=== PATIENT | male | born 1960 | race Caucasian/White ===

== ENCOUNTER 2016-06-09 21:42 | Emergency (ER) | payer MEDICARE ==
[~2016-06-09] VITALS: Ht 165.1 cm; Wt 186.9 kg
[~2016-06-09 21:42] MED LIST: AUGMENTIN 875875 MG PO; CYMBALTA60 MG PO; LYRICA300 MG PO; Lopressor25 MG PO; MULTIVITAMIN1 TA1 PO; NORVASC5 MG PO; OMEPRAZOLE20 MG PO; OXYCONTIN80 MG PO; TEMAZEPAM30 MG PO; TESSALON PERLE200 MG PO; ULTRAM50 MG PO; VIBRAMYCIN100 MG PO; VITAMIN D5000 I3 PO
[2016-06-09] MEDS ORDERED: DOLOPHINE HCL10 MG PO (21:58)
== END 2016-06-10 01:30 | disposition short-term general hospital (02) ==
LOC: ED 21:42
DX: S09.90XA Unspecified injury of head, initial encounter (principal); S89.92XA Unspecified injury of left lower leg, initial encounter; Z79.899 Other long term (current) drug therapy; W18.2XXA Fall in (into) shower or empty bathtub, initial encounter; Y93.89 Activity, other specified; Y92.9 Unspecified place or not applicable; Y99.9 Unspecified external cause status

== ENCOUNTER → 2016-06-26 | Outpatient (CLI) | payer MEDICARE ==
[~2016-06-26] MED LIST changes: +DOLOPHINE HCL10 MG PO
--- NOTE | ~2016-06-26 | WRIGHTHP ---
[place], [place] PATIENT HISTORY AND PHYSICAL EXAM NAME: ANDREAS ESCOTO [facility] #: [id number] UNIT #: [id number] ROOM: DOCTOR: LAURIE AnnaJONAS BIRTHDATE: [birth year] DOS: 06/26/2016 NEW WOUND CARE EVALUATION CHIEF COMPLAINT: Open wound of the left lower extremity. HISTORY OF PRESENT ILLNESS: This is a 55-year-old male who fell approximately on 06/09/2016 at home in the shower and had a very large laceration of the left anterior leg. He was seen here in the Emergency Room Department for this, but also had hit his head, and due to the fact that he was felt to need a CT of the head; however, the CT scanner could not accommodate him due to his weight, the patient was transferred to [place]. At some point, he did have sutures placed in the wound on his left leg; however the sutures came loose and apparently there was a wound infection with what sounds like cellulitis and the patient had been admitted to the hospital at [facility] for 5 days for IV antibiotics. He said he was on multiple antibiotics and discharged home on, he believes, doxycycline twice a day. He said he comes in for that. He does have a history of diabetic foot ulcers, poor healing in the past, has been to the Wound Clinic approximately a year ago. It looks like he had an ultrasound done that showed multilevel disease, some mild bilateral inflow stenosis, bilateral superficial femoral artery stenosis on the right and stenosis and occlusive area on the left, diffuse atherosclerosis of the popliteal tibial arteries, but never did undergo any vascular consultation after this study, but he comes in today because the wound still has not healed and he is seeking wound care. He was referred by his PCP. PAST MEDICAL HISTORY: Significant for morbid obesity. He is status post gastric bypass, neuropathy, right knee reconstruction replacement, bulging disks in his back, diabetes, but no longer has diabetes after his gastric bypass, hypertension, heartburn, swollen ankles, sinus problems, back surgery, depression, anxiety, liver problems, arthritis, history of cellulitis, gastric bypass, cholecystectomy, appendectomy, tonsillectomy, cardiac catheterization in 2001 bariatric surgery 2 years ago, history of hepatitis C treated with interferon, cirrhosis of the liver. SOCIAL HISTORY: He is a former smoker. He smoked for many years, but quit 10 years ago. FAMILY HISTORY: Unremarkable. ALLERGIES: MORPHINE. MEDICATIONS: That have been printed from his PCP's office is the following, Anusol rectal suppositories for 7 days, Benadryl 25 mg 2 tablets daily, capsaicin topical cream b.i.d., Cipro 500 p.o. b.i.d., K-Dur 20 daily, Lasix 20 daily, Lopressor 50 mg half a tablet b.i.d., Lyrica 300 b.i.d., methadone 10 mg 2 tablets t.i.d., Norvasc 10 mg half a tablet b.i.d., oxycodone 10 mg 1 tablet t.i.d., Restoril 30 mg at bedtime, Wellbutrin 100 q. day, Xanax 0.5 daily. He was on prednisone at one point, but I do not believe he is on prednisone now. [place], [place] PATIENT HISTORY AND PHYSICAL EXAM [facility]: [facility] [id number] UNIT #: [id number] ROOM: DOCTOR: JONAS SULLIVAN M.D. BIRTHDATE: [birth year] REVIEW OF SYSTEMS: He denies any chest pain, shortness of breath, nausea, vomiting, abdominal pains or diarrhea. He says he has some drainage. He is complaining that the dressing is sticking to the wound. He says he is not diabetic anymore. He offers no other specific complaints. He is able to ambulate, but has been trying to take it a little bit easier since he has had this problem with the wound. He said the redness that was present when he was hospitalized has much improved with antibiotic therapy. PHYSICAL EXAMINATION: GENERAL: This is a male who appears chronically ill and debilitated, morbidly obese, in no acute distress. VITAL SIGNS: Stable. Temperature is 97.9, pulse is 64, respirations 20, blood pressure is 120/52. NECK: There is no JVD. LUNGS: Clear. CARDIOVASCULAR: S1, S2, regular rate and rhythm. ABDOMEN: Soft. EXTREMITIES: Has chronic edema, venous stasis changes. His toes are warm. He has no calf tenderness. His pulses are very difficult to feel secondary to a chronic woody edema. He does have an open wound located in the left anterior tibia, it is measuring approximately 9 x 2.3 x 0.5 cm in depth. There is exposed subcutaneous tissue. There is moderate amount of fibrin slough. Periwound is not acutely tender or cellulitic. There is no purulence. It is somewhat curvilinear in fashion. His lower extremity ABIs were unobtainable. The patient was unable to lay flat. His capillary refill was less than 3 seconds. LABORATORY STUDIES: Last labs that were documented in the computer show white count of 3.7, this was back in October 2015, hemoglobin is 9.9, platelets are 99,000, BUN is 9, creatinine was 0.63 that is back in October once again. His hemoglobin A1c was 4.8, but that was back in 2014 and his glucose was 78 A debridement was done today. This was a selective debridement only. The tissue removed was a spot fibrin slough, nonviable tissue only. Cetacaine spray was used for topical anesthesia. There was minimal bleeding. The patient tolerated debridement well. Post-debridement measurements are unchanged. ASSESSMENT AND PLAN: Status post wound dehiscence secondary to edema, wound infection, which seems to have been treated. I would like to get the records from [facility] if possible. He does have some peripheral vascular disease according to the study that was done a year ago. We will send the patient for vascular consultation. We will use MYFX and mywaves Ag for now for wound care, have him change it every day or every other day as he has home health. We will have him follow up next week. [place], [place] PATIENT HISTORY AND PHYSICAL EXAM NAME: ANDREAS ESCOTO [facility] #: [id number] UNIT #: [id number] ROOM: DOCTOR: JONAS SULLIVAN M.D. BIRTHDATE: [birth year] JONAS SULLIVAN MD CM:HISPHYS:PATIENT HISTORY AND PHYSICAL EXAMINATION [id number] JONAS SULLIVAN M.D. 06/26/162009 interface
== END ==
LOC: WOUNDCARE 02:12
DX: T81.31XA Disruption of external operation (surgical) wound, not elsewhere classified, initial encounter (principal); E11.622 Type 2 diabetes mellitus with other skin ulcer; L97.922 Non-pressure chronic ulcer of unspecified part of left lower leg with fat layer exposed; E66.01 Morbid (severe) obesity due to excess calories; I10 Essential (primary) hypertension; F32.9 Major depressive disorder, single episode, unspecified; F41.9 Anxiety disorder, unspecified; E11.40 Type 2 diabetes mellitus with diabetic neuropathy, unspecified; B19.20 Unspecified viral hepatitis C without hepatic coma; M19.90 Unspecified osteoarthritis, unspecified site; E11.51 Type 2 diabetes mellitus with diabetic peripheral angiopathy without gangrene; R60.9 Edema, unspecified; Z87.891 Personal history of nicotine dependence; Y83.8 Other surgical procedures as the cause of abnormal reaction of the patient, or of later complication, without mention of misadventure at the time of the procedure

== ENCOUNTER → 2016-07-06 | Outpatient (CLI) | payer MEDICARE ==
--- NOTE | ~2016-07-06 | PR ---
[place], [place] PROGRESS NOTE NAME: ANDREAS ESCOTO [facility] #: [id number] UNIT #: [id number] ROOM: DOCTOR: LAURIE Anna,JONAS BIRTHDATE: [birth year] DOS: 07/06/2016 CHIEF COMPLAINT: Open wound of the left lower extremity. HISTORY OF PRESENT ILLNESS: The wound is located on the left anterior leg. It is traumatic in nature, complicated by morbid obesity and edema. He has had a bout of cellulitis and local wound infection that was treated with IV antibiotics at [facility]. The patient comes in today without any specific complaints. We saw him last week and had recommended Santyl and Aquacel AG. The patient reports not much drainage, has been changing it every day, and he has no complaints of pain. OBJECTIVE: VITAL SIGNS: As follows: His vitals are stable. Temperature is 98.2, pulse is 70, respirations 20, blood pressure is 144/80. WOUND EXAM: The wound is measuring approximately 9 x 1.9 x 0.4. There is exposed subcutaneous tissue. Moderate amount of fibrin slough is present. There is no erythema, cellulitis or purulence noted. There is no tunneling. The wound was debrided today of fibrin slough and subcutaneous tissue. This was accomplished with a curette. Post-debridement measurements are unchanged. There was a minimal amount of bleeding. The patient tolerated the debridement well. Cetacaine spray was used for topical anesthesia. ASSESSMENT AND PLAN: Status post postoperative wound dehiscence secondary to edema and infection. The patient does have some peripheral vascular disease. We have recommended a followup consultation with Vascular and apparently, he had an appointment, but that had to be changed for 3 weeks from now, so he does have a followup being scheduled. Overall, the wound is stable, I will continue with the current dressing and follow up in one week. JONAS SULLIVAN MD CM:PNTRANS [phone] JONAS SULLIVAN M.D. 07/06/16 2221 interface
== END ==
LOC: WOUNDCARE 01:29
DX: T81.31XD Disruption of external operation (surgical) wound, not elsewhere classified, subsequent encounter (principal); L97.822 Non-pressure chronic ulcer of other part of left lower leg with fat layer exposed; I73.9 Peripheral vascular disease, unspecified; E66.01 Morbid (severe) obesity due to excess calories; Y83.8 Other surgical procedures as the cause of abnormal reaction of the patient, or of later complication, without mention of misadventure at the time of the procedure

== ENCOUNTER → 2016-07-13 | Outpatient (CLI) | payer MEDICARE ==
--- NOTE | ~2016-07-13 | PR ---
[place], [place] PROGRESS NOTE NAME: ANDREAS ESCOTO [facility] #: [id number] UNIT #: [id number] ROOM: DOCTOR: JONAS SULLIVAN M.D. BIRTHDATE: [birth year] DOS: 07/13/2016 CHIEF COMPLAINT: Open wound of the left lower extremity. HISTORY OF PRESENT ILLNESS: The wound is located in the left anterior leg. It is traumatic in nature, complicated by morbid obesity and edema. The wound has been opened since the end of May for approximately 4 weeks now. The wound became complicated with a bout of infection and cellulitis and he was treated with IV antibiotics. He has been in the Wound Clinic now for 2-3 weeks with a gradually improving wound. He is on Santyl and Aquacel Ag and this seems to be really helping. He has no specific complaints, occasional twinge of pain, but nothing acutely changed as far as pain or fevers or chills go. OBJECTIVE: VITAL SIGNS: Stable. Temperature is 98.4, pulse is 68, respirations are 20, blood pressure is 110/64. WOUND EXAMINATION: The wound is measuring 8.1 x 1 x 0.3. There is minimal to moderate amount of fibrin slough present in the base of the wound and the dried adherent slough around the periphery of the wound. A debridement was done. The tissue removed was fibrin, slough and subcutaneous tissue. This was accomplished with a curette. Cetacaine spray was used for topical anesthesia. Minimal amount of bleeding was controlled with pressure. The patient tolerated the debridement well. ASSESSMENT AND PLAN: Traumatic wound, status post dehiscence. The wound is improving. He does have peripheral vascular disease and is going to follow up with Dr. Mejia in the next couple of weeks. We will continue with the current Santyl, Aquacel Ag and follow up in 1 week. JONAS SULLIVAN MD CM:FELIPE [phone] JONAS SULILVAN M.D. 07/14/16 0357 interface
== END ==
LOC: WOUNDCARE 02:45
DX: T81.31XD Disruption of external operation (surgical) wound, not elsewhere classified, subsequent encounter (principal); L97.822 Non-pressure chronic ulcer of other part of left lower leg with fat layer exposed; I73.9 Peripheral vascular disease, unspecified; E66.01 Morbid (severe) obesity due to excess calories; Y83.8 Other surgical procedures as the cause of abnormal reaction of the patient, or of later complication, without mention of misadventure at the time of the procedure

== ENCOUNTER → 2016-07-20 | Outpatient (CLI) | payer MEDICARE ==
--- NOTE | ~2016-07-20 | PR ---
[place], [place] PROGRESS NOTE NAME: ANDREAS ESCOTO [facility] #: [id number] UNIT #: [id number] ROOM: DOCTOR: LAURIE AnnaJONAS BIRTHDATE: [birth year] DOS: 07/20/2016 CHIEF COMPLAINT: Open wound of the left lower extremity. HISTORY OF PRESENT ILLNESS: The wound is located in the left anterior leg. It is traumatic in nature, complicated by morbid obesity and edema. It has been opened since the end of May for approximately 5 weeks now. He was initially complicated by a wound infection and cellulitis. He was treated at another facility previously with IV antibiotics. He comes in stating he thinks it is looking really good and he is wondering if he can go ahead and get it wet in a shower. He has no other specific complaints. We wanted to send him for vascular consultation. However, the Dopplers that were done were over a year ago and that the vascular surgeon would like him to repeat his arterial Dopplers before he comes to see him, so we will go ahead and get that ordered. PHYSICAL EXAMINATION: VITAL SIGNS: Stable. Temperature is 97.8, pulse of 70, respirations 20, blood pressure is 110/68. WOUND EXAMINATION: The wound is measuring 8.9 x 1 x 0.1 in depth. It looks good. It is healed quite a bit. There is essentially only 2 areas now, one at the proximal and distal end that are open. There is minimal fibrin, slough present. Overall, looks really good. The middle part of the wound has definitely epithelialized. A debridement was done of the distal and proximal portion of the wound. Tissue removed was fibrin, slough and subcutaneous tissue. There was minimal bleeding. The post-debridement measurements are unchanged. There is, however, still some depth to the distal part of the wound. I would say at least 0.2 cm in depth in one area. A curette was utilized, Cetacaine spray was used for topical anesthesia. The patient tolerated the debridement well. ASSESSMENT AND PLAN: Traumatic wound, status post dehiscence. The wound has been improving. He has probable peripheral vascular disease. We are going to send him for repeat arterial Dopplers. We are going to go ahead and change him to a collagen dressing for now and have him follow up in 1 week. [place], [place] PROGRESS NOTE NAME: ANDREAS ESCOTO UNIT #: [id number] ROOM: DOCTOR: JONAS SULLIVAN M.D. BIRTHDATE: [birth year] JONAS SULLIVAN MD CM:FELIPE [phone] JONAS SULLIVAN M.D. 07/21/16 0329 interface
== END ==
LOC: WOUNDCARE 02:44
DX: T81.31XD Disruption of external operation (surgical) wound, not elsewhere classified, subsequent encounter (principal); L97.822 Non-pressure chronic ulcer of other part of left lower leg with fat layer exposed; I73.9 Peripheral vascular disease, unspecified; E66.01 Morbid (severe) obesity due to excess calories; Y83.8 Other surgical procedures as the cause of abnormal reaction of the patient, or of later complication, without mention of misadventure at the time of the procedure

== ENCOUNTER → 2016-07-27 | Outpatient (CLI) | payer MEDICARE ==
--- NOTE | ~2016-07-27 | PR ---
[place], [place] PROGRESS NOTE NAME: ANDREAS ESCOTO [facility] #: [id number] UNIT #: [id number] ROOM: DOCTOR: JONAS SULLIVAN M.D. BIRTHDATE: [birth year] DOS: 07/27/2016 CHIEF COMPLAINT: Open wound of the left lower extremity. HISTORY OF PRESENT ILLNESS: The ulcer is located in the left anterior leg. It was originally traumatic in nature, complicated by obesity and edema with wound infection and cellulitis. He has been coming to the Wound Clinic now for 4 weeks of treatment. He says the wound has stopped draining and it has started to scab over. He has not experienced any discomfort, fevers or chills. He is going to have a repeat vascular arterial studies done today. PHYSICAL EXAMINATION: VITAL SIGNS: He is afebrile, pulse is 68, respirations 20, blood pressure is 128/72. EXTREMITIES: The wound initially is measuring 0.1 x 0.1 x 0.1 because it is covered with some dried scab material; however, some of it is still slightly moist at the distal end. So, a selective debridement was done of the area just to remove the dried scab/eschar and underneath was still open in certain parts. The wound is measuring 5.8 x 0.7 x 0.3 in length, width and depth. However, within those margins, there is quite a bit of epithelialization, so there is actually just a very small opening at the proximal portion and at the distal portion, but the rest of the wound is healed, so this was a selective debridement only. The tissue removed was just nonviable tissue with a curette. There was no bleeding. The patient tolerated the debridement well. ASSESSMENT AND PLAN: Traumatic wound, complicated by obesity and lymphedema, it is definitely improving. We will continue with a collagen dressing and follow up in one week. I expect it to be healed within the next week or two. We will have him get his arterial Dopplers done today and then once that is accomplished, he can follow up with Vascular. JONAS SULLIVAN MD CM:FELIPE [phone] JONAS SULLIVAN M.D. 07/28/16 0709 interface
== END | disposition home or self-care (01) ==
LOC: US 01:57
DX: S81.802A Unspecified open wound, left lower leg, initial encounter (principal); S89.92XA Unspecified injury of left lower leg, initial encounter; I70.203 Unspecified atherosclerosis of native arteries of extremities, bilateral legs; I89.0 Lymphedema, not elsewhere classified; M79.89 Other specified soft tissue disorders; R60.9 Edema, unspecified; T81.30XD Disruption of wound, unspecified, subsequent encounter; L97.922 Non-pressure chronic ulcer of unspecified part of left lower leg with fat layer exposed; I73.9 Peripheral vascular disease, unspecified; E66.9 Obesity, unspecified; I10 Essential (primary) hypertension; X58.XXXA Exposure to other specified factors, initial encounter; X58.XXXD Exposure to other specified factors, subsequent encounter; Y93.89 Activity, other specified; Y92.89 Other specified places as the place of occurrence of the external cause; Y99.8 Other external cause status

== ENCOUNTER → 2016-08-03 | Outpatient (CLI) | payer MEDICARE ==
--- NOTE | ~2016-08-03 | PR ---
[place], [place] PROGRESS NOTE NAME: ANDREAS ESCOTO [facility] #: [id number] UNIT #: [id number] ROOM: DOCTOR: JONAS SULLIVAN M.D. BIRTHDATE: [birth year] DOS: 08/03/2016 CHIEF COMPLAINT: Open wound of the left lower extremity. HISTORY OF PRESENT ILLNESS: The ulcer is located on the left anterior leg. It originally was traumatic in nature, complicated by obesity and lymphedema, subsequent infection and cellulitis. He has been coming in the Wound Clinic for 5 weeks now. The wound has been steadily improving. He is now on collagen. He is awaiting vascular consultation for peripheral vascular disease. He has no complaints with the wound and he really wants to take a shower. He is asking if that is possible. OBJECTIVE: VITAL SIGNS: His temperature is 98.3, pulse is 65, respirations 20, blood pressure is 122/68. WOUND EXAMINATION: The wound is measuring 1.1 x 0.1 x 0.1. There is a small amount of fibrin slough present in the distal part of the wound. A lot of the wound has healed quite nicely and selective debridement was done just to remove some of the nonviable tissue, fibrin slough was removed. There was no bleeding. The patient tolerated the debridement well. Instrument used was a curette. Post-debridement measurements are 1.1 x 0.1 x 0.2 in depth. ASSESSMENT AND PLAN: A slowly healing leg wound. I think this wound will be healed next week or two. We will continue with the collagen dressing. I did tell him to go ahead and put a waterproof bandage such as a waterproof Band-Aid if he wants to take a shower or we could use a foam. We will try to apply that today and see if that sticks to his skin otherwise he can use a waterproof Band-Aid and change the dressing when he is finished. We will continue with collagen as well. Follow up in one week. JONAS SULLIVAN MD CM:PNTRANS [phone] JONAS SULLIVAN M.D. 08/04/16 0019 interface
== END | disposition home or self-care (01) ==
LOC: WOUNDCARE 00:09
DX: T81.31XD Disruption of external operation (surgical) wound, not elsewhere classified, subsequent encounter (principal); L97.822 Non-pressure chronic ulcer of other part of left lower leg with fat layer exposed; I89.0 Lymphedema, not elsewhere classified; E66.9 Obesity, unspecified; I73.9 Peripheral vascular disease, unspecified; Y83.8 Other surgical procedures as the cause of abnormal reaction of the patient, or of later complication, without mention of misadventure at the time of the procedure

== ENCOUNTER → 2016-08-17 | Outpatient (CLI) | payer MEDICARE ==
--- NOTE | ~2016-08-17 | PR ---
[place], [place] PROGRESS NOTE NAME: ANDREAS ESCOTO [facility] #: [id number] UNIT #: [id number] ROOM: DOCTOR: JONAS SULLIVAN M.D. BIRTHDATE: [birth year] DOS: 08/17/2016 CHIEF COMPLAINT: Followup of wound of the left lower extremity. HISTORY OF PRESENT ILLNESS: The location of the wound is the left anterior reina, tibia. It is complicated by obesity and lymphedema. It was initially traumatic in nature with subsequent infection, fairly large deep wound, the wound has definitely been improving, and he thinks it looks healed. It is not draining. It is not painful. He has not even been able to get the dressings on it as it is scabbed over. PHYSICAL EXAMINATION: VITAL SIGNS: Temperature 98.1, pulse of 84, respirations 20, blood pressure is 144/60. WOUND EXAM: The wound currently is scabbed over. The last measurements we had were 1.1 x 0.1 x 0.2 in depth, but today's measurements are 0.1 x 0.1 x 0.1; however, it is covered with dried scab. This area was debrided of devitalized tissue with forceps and scissors and the wound looks healed underneath it completely epithelialized. ASSESSMENT AND PLAN: Healed wound. We will discharge the patient and have him follow up in the clinic if he needs to in the future for any new problems. He will be seeing Dr. Mejia for vascular consultation later this month. JONAS SULLIVAN MD CM:RENZOTRANS [phone] JONAS SULLIVAN M.D. 08/18/16 0322 interface
== END | disposition home or self-care (01) ==
LOC: WOUNDCARE 00:40
DX: L97.822 Non-pressure chronic ulcer of other part of left lower leg with fat layer exposed (principal); E66.9 Obesity, unspecified; R60.9 Edema, unspecified; I89.0 Lymphedema, not elsewhere classified

== ENCOUNTER → 2017-08-22 | Outpatient (CLI) | payer MEDICARE | END | disposition home or self-care (01) | LOC: WOUNDCARE 01:27 | DX: E11.621 Type 2 diabetes mellitus with foot ulcer (principal); L97.422 Non-pressure chronic ulcer of left heel and midfoot with fat layer exposed; K21.9 Gastro-esophageal reflux disease without esophagitis; I10 Essential (primary) hypertension; G89.29 Other chronic pain; Z87.891 Personal history of nicotine dependence ==

== ENCOUNTER → 2017-08-29 | Outpatient (CLI) | payer MEDICARE | END | disposition home or self-care (01) | LOC: WOUNDCARE 00:27 | DX: E11.621 Type 2 diabetes mellitus with foot ulcer (principal); L97.422 Non-pressure chronic ulcer of left heel and midfoot with fat layer exposed; L84 Corns and callosities; G89.29 Other chronic pain; I10 Essential (primary) hypertension; K21.9 Gastro-esophageal reflux disease without esophagitis; Z87.891 Personal history of nicotine dependence; Z96.651 Presence of right artificial knee joint; Z90.49 Acquired absence of other specified parts of digestive tract ==

== ENCOUNTER → 2017-09-05 | Outpatient (CLI) | payer MEDICARE | END | disposition home or self-care (01) | LOC: WOUNDCARE 03:41 | DX: E11.621 Type 2 diabetes mellitus with foot ulcer (principal); L97.422 Non-pressure chronic ulcer of left heel and midfoot with fat layer exposed; K21.9 Gastro-esophageal reflux disease without esophagitis; I10 Essential (primary) hypertension; G89.29 Other chronic pain; Z96.651 Presence of right artificial knee joint; Z93.3 Colostomy status; Z87.891 Personal history of nicotine dependence ==

== ENCOUNTER → 2017-09-12 | Outpatient (CLI) | payer MEDICARE | END | disposition home or self-care (01) | LOC: WOUNDCARE 03:13 | DX: E11.621 Type 2 diabetes mellitus with foot ulcer (principal); L97.422 Non-pressure chronic ulcer of left heel and midfoot with fat layer exposed; K21.9 Gastro-esophageal reflux disease without esophagitis; I10 Essential (primary) hypertension; G89.29 Other chronic pain; Z87.891 Personal history of nicotine dependence; Z96.651 Presence of right artificial knee joint ==

== ENCOUNTER → 2017-09-26 | Outpatient (CLI) | payer MEDICARE | END | disposition home or self-care (01) | LOC: WOUNDCARE 04:23 | DX: E11.621 Type 2 diabetes mellitus with foot ulcer (principal); L97.422 Non-pressure chronic ulcer of left heel and midfoot with fat layer exposed; L84 Corns and callosities; G89.29 Other chronic pain; I10 Essential (primary) hypertension; K21.9 Gastro-esophageal reflux disease without esophagitis; Z87.891 Personal history of nicotine dependence; Z90.49 Acquired absence of other specified parts of digestive tract; Z96.651 Presence of right artificial knee joint ==

== ENCOUNTER → 2017-10-10 | Outpatient (CLI) | payer MEDICARE | END | disposition home or self-care (01) | LOC: WOUNDCARE 03:36 | DX: E11.621 Type 2 diabetes mellitus with foot ulcer (principal); L97.422 Non-pressure chronic ulcer of left heel and midfoot with fat layer exposed; L84 Corns and callosities; G89.29 Other chronic pain; I10 Essential (primary) hypertension; K21.9 Gastro-esophageal reflux disease without esophagitis; Z87.891 Personal history of nicotine dependence; Z90.49 Acquired absence of other specified parts of digestive tract; Z96.651 Presence of right artificial knee joint ==

== ENCOUNTER → 2017-10-17 | Outpatient (CLI) | payer MEDICARE | END | disposition home or self-care (01) | LOC: WOUNDCARE 02:07 | DX: E11.621 Type 2 diabetes mellitus with foot ulcer (principal); L97.422 Non-pressure chronic ulcer of left heel and midfoot with fat layer exposed; L84 Corns and callosities; G89.29 Other chronic pain; I10 Essential (primary) hypertension; K21.9 Gastro-esophageal reflux disease without esophagitis; Z87.891 Personal history of nicotine dependence; Z96.651 Presence of right artificial knee joint; Z90.49 Acquired absence of other specified parts of digestive tract ==

== ENCOUNTER → 2017-10-19 | Outpatient (CLI) | payer MEDICARE | END | disposition home or self-care (01) | LOC: WOUNDCARE 02:33 | DX: E11.621 Type 2 diabetes mellitus with foot ulcer (principal); L89.322 Pressure ulcer of left buttock, stage 2; L98.411 Non-pressure chronic ulcer of buttock limited to breakdown of skin; L97.422 Non-pressure chronic ulcer of left heel and midfoot with fat layer exposed; K21.9 Gastro-esophageal reflux disease without esophagitis; I10 Essential (primary) hypertension; G89.29 Other chronic pain; Z87.891 Personal history of nicotine dependence ==

== ENCOUNTER → 2017-11-28 | Outpatient (CLI) | payer MEDICARE ==
[~2017-11-28] MED LIST changes: +ALPRAZOLAM0.5 M3 PO; +BENADRYL ALLERG25 M5 PO; +Carafate1 GM PO; +LOPRESSOR25 MG PO; +METHADONE HCL40 M1 PO; +ONDANSETRON4 M1 PO; +OXYBUTYNIN CHLOR5 MG PO; +OXYCODONE HCL10 M1 PO; +OXYCODONE HCL5 M1 PO; +RESTORIL15 MG PO; +Synthroid,Levo25 MCG PO; +THE MEDICINE SH20 M1 PO; +WALKER; +XANAX0.5 MG PO
== END | disposition home or self-care (01) ==
LOC: WOUNDCARE 04:17
DX: E11.621 Type 2 diabetes mellitus with foot ulcer (principal); L89.622 Pressure ulcer of left heel, stage 2; L89.322 Pressure ulcer of left buttock, stage 2; L97.422 Non-pressure chronic ulcer of left heel and midfoot with fat layer exposed; L98.411 Non-pressure chronic ulcer of buttock limited to breakdown of skin; K21.9 Gastro-esophageal reflux disease without esophagitis; I10 Essential (primary) hypertension; G89.29 Other chronic pain; Z87.891 Personal history of nicotine dependence

== ENCOUNTER 2017-12-07 14:45 | Inpatient (IN) | payer MEDICARE ==
[~2017-12-07] VITALS: Ht 182.9 cm; Wt 142.0 kg
--- NOTE | ~2017-12-07 | PR ---
[place], [place] PROGRESS NOTE [id number] #: [id number] ROOM: 526 DOCTOR: GYPSY GUDINO MD BIRTHDATE: [birth year] DOS: SUBJECTIVE: The patient is about the same, does not have any new complaints. He questioned why his methadone was cut back. Usually goes to the pain clinic in [place] and received them. OBJECTIVE: VITAL SIGNS: Graphic trend shows a pressure of 140/70, pulse of 70, respirations 18, temperature 98.5. LUNGS: Clear. HEART: Regular. ABDOMEN: Obese. EXTREMITIES: Chronic stasis dermatitis. LABORATORY DATA: Glucose 75, BUN 7, creatinine 1.42. Sodium 141, potassium 3.6, chloride 107. No CBC available today. Blood cultures showed no bacterial growth. ASSESSMENT AND PLAN: 1. The patient who presented with abdominal pain with a large gastric ulcer. The anastomotic site is improving. 2. Enterococcus durans in the urine contaminant as per ID. Zyvox was discontinued. 3. Adult failure to thrive, awaiting placement to [facility]. Hopefully, we will get it done tomorrow. GYPSY GUDINO MD CM:PNTRANS [phone] GYPSY GUDINO MD 12/16/171925 interface
--- NOTE | ~2017-12-07 | PR ---
[place], [place] PROGRESS NOTE NAME: ANDREAS ESCOTO UNIT #: [id number] ROOM: 526 DOCTOR: ZANE BAUM MD BIRTHDATE: [birth year] DOS: 12/09/2017 SUBJECTIVE: The patient is feeling better and wanting to eat more food after his EGD. OBJECTIVE: VITAL SIGNS: Blood pressure is 132/50, heart rate is 70 beats per minute, breathing 18 times per minute, and temperature 98.4 degrees Fahrenheit. GENERAL APPEARANCE: The patient is alert and oriented x 3, in no visible distress. The patient is morbidly obese and has generalized weakness, HEENT AND NECK: Exam within normal limits. CARDIOVASCULAR SYSTEM: Heart rate is regular in rate and rhythm. S1 and S2 normally audible. LUNGS: Clear to auscultation. ABDOMEN: Soft, nontender. No obvious organomegaly. Bowel sounds are present. EXTREMITIES: Without significant cyanosis or edema. Chronic stasis dermatitis and skin changes in both legs, multiple superficial skin wounds. IMPRESSION: 1. Morbid obesity. The patient is working with dietary. 2. Large anastomotic stomach ulcer with gastrointestinal bleed and anemia, being treated with Sandostatin, Carafate, proton pump inhibitors by Dr. Fragoso, who is closely following him. 3. Thrombocytopenia with platelet count of 53,000, apparently from portal hypertension and hypersplenism and is chronic. 4. Acute gastrointestinal blood loss anemia with a hemoglobin of 7.4 after blood transfusion. 5. Pancytopenia and white cell count of 1900, is chronically low. The patient was kept on neutropenic precautions. 6. Advanced liver cirrhosis history. 7. Benign essential hypertension, being treated and controlled. 8. Chronic pain syndrome. The patient is on multiple opiates. 9. Chronic primary insomnia, treated and controlled. 10. The patient is chronically sick and has poor prognosis in the long run. Palliative care consulted. [place], [place] PROGRESS NOTE NAME: ANDREAS ESCOTO UNIT #: [id number] ROOM: 526 DOCTOR: ZANE BAUM MD BIRTHDATE: [birth year] ZANE BAUM MD CM:PNTRANS [phone] ZANE BAUM MD 12/10/17 0021 interface
--- NOTE | ~2017-12-07 | PR ---
[place], [place] PROGRESS NOTE [id number] UN[facility] #: [id number] ROOM: 526 DOCTOR: GYPSY GUDINO MD BIRTHDATE: [birth year] DOS: 12/17/2017 SUBJECTIVE: The patient is not having any new complaints this morning. OBJECTIVE: VITAL SIGNS: Graphic trend shows a pressure of 153/71, pulse of 70, respirations 20, temperature 98.4. LUNGS: Clear. HEART: Regular. ABDOMEN: Obese, soft, nontender. EXTREMITIES: Chronic stasis dermatitis. ASSESSMENT AND PLAN: 1. Abdominal pain with endoscopy showing a large gastric ulcer, anastomotic site stable without any further drop in his H and H. 2. Morbid obesity with adult failure to thrive. He has been accepted at [facility]. Plan is to discharge him to [facility] today. GYPSY GUDINO MD CM:PNTRANS [phone] GYPSY GUDINO MD 12/18/17 1142 interface
--- NOTE | ~2017-12-07 | O ---
[place], [place] OPERATIVE NOTE NAME: ANDREAS ESCOTO UNIT #: [id number] ROOM: 526 DOCTOR: DOUGIE REILLY MD BIRTHDATE: [birth year] DOS: 12/13/2017 GASTROENDOSCOPIC REPORT HISTORY OF PRESENT ILLNESS: A 57-year-old morbidly obese despite gastric bypass, anastomotic site large ulceration and Russell esophagus history, status post multiple transfusion, drop in H and H, Latest H and H is 9 and 28. Platelet count of 55. PROCEDURE: Today's procedure part of investigation and therapy is panendoscopy plus Epinephrine injection for hemostasis therapy. PREMEDICATION: Propofol. SCOPE: Olympus forward-viewing gastroscope Q10 video. REPORT: After putting the patient in left lateral position and application of lubricant to the scope, the scope was introduced. Thereafter, under direct visualization, advanced through the length of esophagus without difficulty. Gastric pouch was entered. Status post gastric bypass configuration was identified. Injected with epinephrine 1:10,000, 3 mL of different flanks of it. The ulcer is well scarred, very fragile on the surface as well. Patency of afferent limb noticed some gastric residual retained food and medications were noticed, photographed. The patient extubated, tolerated procedure well. IMPRESSION: Giant anastomotic ulcer, status post photographic series, status post epinephrine injection hemostasis therapy. PLAN AND DISCUSSION: Aggressive PPI management with, Protonix 40 mg IV b.i.d., sucralfate 2 grams q.i.d. DOUGIE REILLY MD CM:OPRECORD:OPERATIVE NOTE 50 11 DOUGIE REILLY MD 12/13/171909 interface
--- NOTE | ~2017-12-07 | PR ---
[place], [place] PROGRESS NOTE NAME: ANDREAS ESCOTO UNIT #: [id number] ROOM: 526 DOCTOR: ZANE BAUM MD BIRTHDATE: [birth year] DOS: 12/13/2017 SUBJECTIVE: The patient continues to do better. OBJECTIVE: VITAL SIGNS: Blood pressure 146/86, heart rate of 64 beats per minute, breathing 20 times per minute, temperature 98 degrees Fahrenheit. GENERAL APPEARANCE: The patient is alert and oriented x 3, in no visible distress. Obesity, generalized weakness. HEENT AND NECK: Exam within normal limits. CARDIOVASCULAR SYSTEM: Heart rate is regular in rate and rhythm. S1 and S2 normally audible. LUNGS: Clear to auscultation. ABDOMEN: Soft, nontender. No obvious organomegaly. Bowel sounds are present. EXTREMITIES: Without significant cyanosis or edema. Chronic skin changes and stasis dermatitis in both lower extremities. IMPRESSION: 1. Patient with pancytopenia and advance adult failure to thrive, which is chronic. 2. Acute blood loss anemia with hemoglobin improved to 9 with blood transfusion. 3. Large anastomotic stomach ulcer and upper gastrointestinal bleed, being reevaluated by EGD by Dr. Frgaoso again today. 4. Chronic pain syndrome. The patient treated with multiple opioids as an outpatient. 5. Chronic primary insomnia, treated with Restoril as needed. 6. Thrombocytopenia, apparently related to portal hypertension from liver cirrhosis, which is chronic. 7. Benign essential hypertension, treated and controlled. 8. Patient waiting for transfer to custodial facility because his cannot take care of him at home anymore. ZANE BAUM MD CM:PNTRANS [id number] ZANE BAUM MD 12/14/17 0230 interface
--- NOTE | ~2017-12-07 | O ---
[place], [place] OPERATIVE NOTE NAME: ANDREAS ESCOTO UNIT #: [id number] ROOM: 526 DOCTOR: TOMMIE THOMPSON,DOUGIE BIRTHDATE: [birth year] DOS: 12/08/2017 GASTROENDOSCOPIC REPORT INDICATION: This is a 57-year-old patient who presented with a chief complaint of profound anemia, guaiac positivity, emesis, super-morbid obesity status post gastric bypass, stasis dermatitis of the lower extremities and ulcerations. PROCEDURE: Today's procedure part of investigation is panendoscopy and photographic series. PREMEDICATION: Propofol and Versed. SCOPE: Olympus forward-viewing gastroscope Q10 video. REPORT: After putting the patient in left lateral position and application of lubricant to the scope, scope was introduced, thereafter under direct visualization advanced through the length of esophagus without difficulty. There is no gross esophageal varicosity; however, as we entered the gastric pouch, I noticed anastomotic ulceration which is giant in size, about 3.5 cm in diameter, fresh clot, sitting on the base of which is scarred. Enteric site following the ulcer was noticed, no manipulation was done since the patient's platelet is low, white blood cell is low, photographed, and the patient extubated, tolerated the procedure well. IMPRESSION: Giant anastomotic ulcer with bleed status post photographic series. PLAN AND DISCUSSION: Sandostatin loading 50 mcg per hour for 72 hours, sucralfate 2 grams slurry q.i.d., Protonix IV 40 mg b.i.d. Liquid diet, including ice cream, milkshake, iced Jell-O, iced Ensure, and continuation with IV hydration, potassium 40 mEq rider has been also ordered for hypokalemia, CBC in the morning, basic metabolic in the morning. Supportive management. DOUGIE REILLY MD CM:OPRECORD:OPERATIVE NOTE [id number] DOUGIE REILLY MD 12/08/17 1211 interface
--- NOTE | ~2017-12-07 | PR ---
[place], [place] PROGRESS NOTE NAME: ANDREAS ESCOTO [facility] #: [id number] UNIT #: [id number] ROOM: 526 DOCTOR: GYPSY GUDINO MD BIRTHDATE: [birth year] DOS: 12/15/2017 SUBJECTIVE: The patient is about the same, does not have any new changes. OBJECTIVE: VITAL SIGNS: Graphic trend shows a pressure 151/72, pulse of 65, respirations 20, and temperature 97.4. LUNGS: Diminished breath sounds. HEART: Regular. ABDOMEN: Obese. EXTREMITIES: Chronic discoloration from PVD and stasis dermatitis, left heel large stage 2 wound, which is granulating nicely. ASSESSMENT AND PLAN: 1. A large gastric ulcer at the anastomotic site. The patient is on maximal treatment plan. No CBC available today. 2. Precipitous drop in hematocrit from the bleeding from ulcer. Recheck hemoglobin tomorrow. 3. Hypokalemia. Supplementation is given. 4. Adult failure to thrive. He is agreeable to go to [facility], precertification pending. 5. Chronic liver disease, caused with resultant thrombocytopenia. GYPSY GUDINO MD CM:PNTRANS 1 04 GYPSY GUDINO MD 12/15/172102 interface
--- NOTE | ~2017-12-07 | PR ---
[place], [place] [facility]GRESS NOTE [id number] UNIT #: [id number] ROOM: 526 DOCTOR: ZANE BAUM MD BIRTHDATE: [birth year] DOS: 12/12/2017 SUBJECTIVE: The patient with generalized weakness, morbid obesity and advanced failure to thrive. OBJECTIVE: GENERAL APPEARANCE: The patient is alert and oriented x 3, in no visible distress. Morbid obesity. VITAL SIGNS: Blood pressure 155/58, heart rate of 63 beats per minute, breathing normally, afebrile. HEENT AND NECK: Exam within normal limits. CARDIOVASCULAR SYSTEM: Heart rate is regular in rate and rhythm. S1 and S2 normally audible. LUNGS: Clear to auscultation. ABDOMEN: Soft, nontender. No obvious organomegaly. Bowel sounds are present. EXTREMITIES: Chronic skin changes in lower extremities with chronic leg and pedal edema. IMPRESSION: 1. Acute gastrointestinal blood loss anemia from large anastomotic stomach ulcer, status post blood transfusions. Hemoglobin still low at 7.7. I will check it again tomorrow. 2. Pancytopenia, thrombocytopenia, which is chronic and the patient has portal hypertension from advanced liver cirrhosis. 3. Morbid obesity. The patient working with dietary. He already has stomach surgery for weight loss. 4. Chronic primary insomnia, treated and controlled. 5. Chronic pain syndrome. The patient on multiple opioid medications, which he was taking at home. 6. Benign essential hypertension, treated and controlled. 7. The patient waiting for transfer to [facility]. The patient's says she cannot take care of him at home anymore. ZANE BAUM MD CM:PNTRANS [phone] ZANE BAUM MD 12/13/17 0303 interface
--- NOTE | ~2017-12-07 | WRIGHTHP ---
[place], [place] PATIENT HISTORY AND PHYSICAL EXAM NAME: ANDREAS ESCOTO [facility] #: [id number] UNIT #: [id number] ROOM: 526 DOCTOR: ZANE BAUM MD BIRTHDATE: [birth year] DOS: 12/07/2017 HISTORY OF PRESENT ILLNESS: The patient is a 57-year-old gentleman who is chronically sick and has a past medical history of: 1. COPD, morbid obesity. 2. Benign essential hypertension. 3. Major depression, recurrent. 4. Generalized anxiety disorder. 5. GERD and esophagitis. 6. Chronic hepatitis C. 7. Liver cirrhosis. 8. Bariatric surgery for weight loss. 9. History of appendectomy, cholecystectomy, tonsillectomy. 10. Right knee reconstruction. 11. History of back surgery. 12. Chronic primary insomnia. The patient presented to [facility] Emergency Department feeling very weak. The patient had gone for a CAT scan and he could barely get out and go home and was sent to the Emergency Department where he was found to be quite anemic, leukopenic, severely depleted, dehydrated, unable to eat even a piece of chicken according to the patient. The patient says when he eats, he gets stomach pains. The patient had been feeling gradually worse for a couple of months. He had abdominal pains, some burning in his urination. The patient was recommended for admission. After admission, the patient says he is starting to feel slightly better. The patient was immediately taken for an endoscopy and found to have a large anastomotic ulcer in his stomach. Blood transfusion was ordered by Dr. Fragoso, a laborer powerhouse. No chest pain, no increasing shortness of breath. REVIEW OF SYSTEMS: RESPIRATORY: No increasing shortness of breath. GASTROINTESTINAL: Chronic stomach pains. The patient unable to eat. Weight loss. CARDIOVASCULAR SYSTEM: No chest pains or palpitations. FAMILY HISTORY: Noncontributory. SOCIAL HISTORY: The patient lives at home and his takes care of him. Denies smoking cigarettes, alcohol and drug abuse. HOME MEDICATIONS: Oxybutynin, methadone, Xanax, temazepam, Lyrica, oxycodone. ALLERGIES: No known drug allergies. PHYSICAL EXAMINATION: GENERAL APPEARANCE: The patient is alert and oriented x 3, looking very chronically sick and morbidly obese. HEENT AND NECK: Extraocular movements are intact. Sclerae are anicteric. Oral mucosa is moist and clean. No obvious facial weakness. Neck is supple without [place], [place] PATIENT HISTORY AND PHYSICAL EXAM NAME: [id number] UNIT #: [id number] ROOM: 526 DOCTOR: ZANE BAUM MD BIRTHDATE: [birth year] any lymphadenopathy. No thyromegaly. No JVD. No carotid arterial bruits. LUNGS: Clear to auscultation. No wheezing. No rhonchi. CARDIOVASCULAR SYSTEM: Heart rate is regular in rate and rhythm. S1 and S2 normally audible. No significant murmur or any other abnormal cardiac sounds. ABDOMEN: Soft, nontender. No obvious organomegaly. Bowel sounds are present. No obvious herniation. EXTREMITIES: Chronic stasis dermatitis in lower extremities and chronic skin changes in both legs. Leg and pedal edema and multiple skin wounds. CENTRAL NERVOUS SYSTEM: Alert and oriented x 3. Cranial nerves II-XII are intact. Speech is normal. The patient is able to move all extremities. Normal muscle strength. Deep tendon reflexes are equal on both sides. Plantars were downgoing. LABORATORY DATA: Hemoglobin has dropped to 7. BUN and creatinine 19 and 1.4, potassium of 3. IMPRESSION: 1. The patient with acute blood loss anemia, treated with blood transfusion. EGD showing a large anastomotic ulcer, which is now being treated with proton pump inhibitors and Carafate and Sandostatin to stop bleeding by Dr. Fragoso. Hemoglobins to be monitored and treated with blood transfusions as necessary. 2. Leukopenia. The patient was started on neutropenic precautions. 3. The patient with liver cirrhosis, to be monitored for ascites. 4. 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 5. Chronic pain syndrome. The patient on multiple opiates to keep him comfortable. 6. Benign essential hypertension. Blood pressures to be monitored and treated. 7. Chronic stasis dermatitis and severe leg and pedal edema, to be treated with leg elevation. 8. Benign essential hypertension, to be treated and controlled. 9. The patient is chronically sick and has a very poor long-term prognosis. I will consult palliative care to discuss the situation with the patient and his family and his considering that the patient is in very poor health and his prognosis is poor. [place], [place] PATIENT HISTORY AND PHYSICAL EXAM NAME: ANDREAS ESCOTO UNIT #: [id number] ROOM: 526 DOCTOR: ZANE BAUM MD BIRTHDATE: [birth year] ZANE BAUM MD CM:HISPHYS:PATIENT HISTORY AND PHYSICAL EXAMINATION 51 33 ZANE BAUM MD 12/08/171931 interface
--- NOTE | ~2017-12-07 | PR ---
[place], [place] PROGRESS NOTE NAME: [id number] UNIT #: [id number] ROOM: 526 DOCTOR: ZANE BAUM MD BIRTHDATE: [birth year] DOS: 12/11/2017 SUBJECTIVE: The patient continues to feel better. He feels he ate too much today, so his abdomen feels a little distended. OBJECTIVE: VITAL SIGNS: Blood pressure 139/64, heart rate 70 beats per minute, breathing 18 times per minute, afebrile. GENERAL APPEARANCE: The patient has generalized weakness, morbid obesity. HEENT AND NECK: Exam within normal limits. CARDIOVASCULAR SYSTEM: Heart rate is regular in rate and rhythm. S1 and S2 normally audible. LUNGS: Clear to auscultation. ABDOMEN: Soft, nontender. No obvious organomegaly. Bowel sounds are present. EXTREMITIES: Chronic leg and pedal edema and chronic skin changes of his legs and skin wound in the left leg. IMPRESSION: 1. The patient with acute upper GI bleed with large anastomotic ulcer in his stomach with another drop in his hemoglobin to 6.4 this morning. The patient is receiving 2 units of packed cells and Dr. Fragoso, the supervisor treating and pumping is following him. The patient's prognosis is guarded. 2. Liver cirrhosis, portal hypertension, chronic thrombocytopenia and poor long-term prognosis. Palliative care has been consulted. 3. Morbid obesity. The patient is status post surgery, working with dietary. 4. Acute blood loss anemia being replaced with blood transfusions. 5. Advanced adult failure to thrive. We are taking bedsore precautions. 6. Chronic primary insomnia, treated and controlled. 7. Chronic pain syndrome. The patient is on multiple opioids that he has been taking at home. 8. Benign essential hypertension, treated and controlled. ZANE BAUM MD CM:PNTRANS [phone] ZANE BAUM MD 12/12/17 1519 interface
--- NOTE | ~2017-12-07 | WRIGHTHP ---
[place], [place] PATIENT HISTORY AND PHYSICAL EXAM NAME: ANDREAS ESCOTO UNIT #: [id number] ROOM: 526 DOCTOR: DOUGIE REILLY MD BIRTHDATE: [birth year] DOS: 12/14/2017 HISTORY OF PRESENT ILLNESS: The patient has presented with a GI bleed, giant anastomotic site ulcer, status post gastric bypass. The patient known with gastric retention. The patient has been on Sandostatin past 4 days. He had drop in H and H. He was endoscopically evaluated yesterday injected with epinephrine. There was oozing site of the anastomotic ulcer. The patient has thrombocytopenia of 50, cirrhotic liver, morbid obesity, and multiple medical issues. PAST MEDICAL HISTORY: Otherwise, as dictated in consultation report. REVIEW OF SYSTEMS: HEENT: Denies double vision or blurred vision. RESPIRATORY: Denies shortness of breath. CARDIOVASCULAR: Denies chest pain. DIGESTIVE SYSTEM: Revealed a giant anastomotic ulcer. PHYSICAL EXAMINATION: GENERAL: Morbidly obese patient. HEENT: Head normocephalic, nontraumatic. Mouth and buccal mucosa benign. NECK: Supple, no thyromegaly, no cervical lymphadenopathy. CHEST: Symmetric anatomy, equal expansion. No wheeze, no rhonchi. HEART: Normal sinus rhythm, no gallop, no murmur. ABDOMEN: Massive, obese. Bowel sounds present. Intraabdominal organs cannot be palpated. EXTREMITIES: Intense stasis dermatitis and ulcerations, bedridden. IMPRESSION: Giant anastomotic site ulcer, status post epinephrine injection yesterday and hemostasis therapy, thrombocytopenia, and cirrhosis. PLAN AND DISCUSSION: Aggressive ulcer therapy with PPI, Protonix 40 mg IV b.i.d., sucralfate 2 grams slurry q.i.d. full liquid diet and conservative therapy. Should he bleed again perhaps he needs to be referred back to a bariatric surgery and to remodify his anastomotic site. [place], [place] PATIENT HISTORY AND PHYSICAL EXAM NAME: ANDREAS ESCOTO UNIT #: [id number] ROOM: 526 DOCTOR: DOUGIE REILLY MD BIRTHDATE: [birth year] DOUGIE REILLY MD CM:HISPHYS:PATIENT HISTORY AND PHYSICAL EXAMINATION 1829 07 DOUGIE REILLY MD 12/14/17 1906 interface
--- NOTE | ~2017-12-07 | EKG ---
[place], [place] ELECTROCARDIOGRAM REPORT NAME: ANDREAS ESCOTO UNIT #: [id number] ROOM: 526 DOCTOR: DAPHNE DRAFT REPORT BIRTHDATE: [birth year] [facility] Test Date: 2017-12-07 Test Time: 15:34:17 Pat Name: ANDREAS ESCOTO Department: 5E Room: 526 Gender: M Sliding Joint Maker: NARESH : 1960 Requested By: EYAL CHEEK Order Number: [id number] Reading MD: Fish Carlisle MD Measurements Intervals [place] Rate: 72 P: 36 NC: 190 QRS: 19 QRSD: 115 T: 21 QT: 469 QTc: 514 Interpretive Statements Sinus rhythm Nonspecific intraventricular conduction delay Low voltage, precordial leads Nonspecific T abnormalities, anterior leads Electronically Signed On 12-10-2017 9:08:35 PDT by Fish Carlisle MD CM:EKGRPT:ELECTROCARDIOGRAM REPORT 1534 0908 EYAL AGARWAL DRAFT REPORT EYAL CHEEK DO
--- NOTE | ~2017-12-07 | PR ---
[place], [place] PROGRESS NOTE NAME: ANDREAS ESCOTO UNIT #: [id number] ROOM: 526 DOCTOR: ZANE BAUM MD BIRTHDATE: [birth year] DOS: 12/10/2017 SUBJECTIVE: The patient is feeling better. He is up on his feet and walking with the help of a walker, feeling better. OBJECTIVE: GENERAL APPEARANCE: Generalized weakness, morbid obesity and multiple skin lesions, especially on his lower extremities with generalized weakness, chronic skin changes and darkening of her skin in both legs along the skin wounds, especially at the back of his left ankle. VITAL SIGNS: Blood pressure 138/76, heart rate 83 beats per minute, breathing 20 times per minute, temperature 98 degrees Fahrenheit. HEENT AND NECK: Exam within normal limits. CARDIOVASCULAR SYSTEM: Heart rate is regular in rate and rhythm. S1 and S2 normally audible. LUNGS: Clear to auscultation. ABDOMEN: Soft, nontender. No obvious organomegaly. Bowel sounds are present. EXTREMITIES: Without significant cyanosis or edema. IMPRESSION: 1. Acute upper gastrointestinal bleed with large anastomotic ulcer in his stomach, seen on EGD by Dr. Fragoso. He is being treated and his hemoglobin is improving. The patient is status post blood transfusion. 2. Acute blood loss anemia, treated with blood transfusion. 3. Morbid obesity. The patient working with dietary. 4. Advance adult failure to thrive and poor prognosis in the long run. Palliative care consulted. 5. Pancytopenia, leukopenia, thrombocytopenia and anemia, being followed and treated. White cell count has improved and platelet counts are better. The patient apparently has hypersplenism related to portal hypertension. 6. Chronic primary insomnia, treated and controlled. 7. Chronic pain syndrome. The patient on multiple opioids that he was taking at home. 8. Benign essential hypertension, treated and controlled. 9. Advanced liver cirrhosis history. [place], [place] PROGRESS NOTE NAME: ANDREAS ESCOTO UNIT #: [id number] ROOM: 526 DOCTOR: ZANE BAUM MD BIRTHDATE: [birth year] ZANE BAUM MD CM:PNTRANS 1046 ZNAE BAUM MD 12/11/17 0310 interface
--- NOTE | ~2017-12-07 | CON ---
[place], [place] REPORT OF CONSULTATION NAME: [id number] UNIT #: [id number] ROOM: 526 DOCTOR: DOUGIE REILLY MD BIRTHDATE: [birth year] DOS: 12/08/2017 GASTROENDOSCOPIC REPORT HISTORY OF PRESENT ILLNESS: This 57-year-old morbidly obese patient has presented with a history of hematemesis and melanotic stool, concerned about profound anemia, H and H of 7 and 22 with thrombocytopenia, platelets of 51. The patient is with abdominal pain, which is nonspecific. He has undergone a CT scan of the abdomen. [id number] urinary bladder wall thickening, pericystic fat stranding, possible cystitis has been in differential also, hepatic cirrhosis, evidence of portal hypertension, large right posterolateral urinary diverticulum all has been recognized. Chest x-ray, stable cardiomegaly. Comprehensive metabolic panel, electrolytes, potassium of 3.0 has been addressed and still he remains with hypokalemia. Calcium is 7.5. This has to do with his low albumin of 2.1. C-reactive protein 2.9. BNP 903. Serum ammonia level within normal limits. CBC, white blood cell 1.8 with H and H of 7 and 22, platelets have dropped to 45. PAST MEDICAL HISTORY: History of hepatitis C status post interferon and ribavirin therapy, history of diabetes mellitus, morbid obesity, peripheral neuropathy, history of hypertension, cellulitis of the lower extremities, history of portal hypertension, anxiety, depression, and degenerative joint disease. PAST SURGICAL HISTORY: Gastric bypass, cholecystectomy, appendectomy, tonsillectomy, cardiac catheterization, right knee prosthesis. SOCIAL HISTORY: Past smoker. Past recreational drug user. FAMILY HISTORY: Noncontributory. ALLERGIES: MORPHINE. MEDICATIONS: List has been reviewed. REVIEW OF SYSTEMS: HEENT: Denies double vision or blurred vision. RESPIRATORY: Denies acute shortness of breath. CARDIOVASCULAR: Denies acute chest pain. DIGESTIVE SYSTEM: GI bleed, anemia, status post gastric bypass. PHYSICAL EXAMINATION: VITAL SIGNS: Stable. GENERAL: Slow; the patient with normal serum ammonia. HEENT: Head: Normocephalic, nontraumatic. Eyes: Pupils round and reactive. Mouth and buccal mucosa benign. Poor dental hygiene. NECK: Supple. No thyromegaly. No cervical lymphadenopathy. CHEST: Symmetric anatomy, equal expansion. Decreased air entry in general. HEART: Normal sinus rhythm. No gallop. No murmur. ABDOMEN: Obese, large, soft. Scar of surgery midline subumbilically was [place], [place] REPORT OF CONSULTATION NAME: ANDREAS ESCOTO UNIT #: [id number] ROOM: 526 DOCTOR: DOUGIE REILLY MD BIRTHDATE: [birth year] noticed. No rebound effect. EXTREMITIES: Advanced lower extremity stasis dermatitis and cellulitis of chronic nature was noticed. NEUROLOGIC: Alert and oriented, slow however in general. LABORATORY DATA: Reviewed. Records reviewed. Data reviewed. IMPRESSION: 1. Electrolyte imbalance. 2. Hypokalemia. 3. Leukopenia. 4. Thrombocytopenia. 5. Cirrhotic liver. 6. Portal hypertension. 7. History of hepatitis C status post therapy. 8. History of diabetes mellitus; however, apparently he has recovered from his history of uncontrolled diabetes mellitus. 9. Other adjunctive diagnoses as outlined in paragraphs of past medical and surgical history. PLAN AND DISCUSSION: Due to concern of profound anemia and black tarry stool, we are going to consider a limited endoscopic diagnostic evaluation of upper GI tract, particularly in view of the fact the patient has had gastric bypass, and clinical reassessment. Thank you very much indeed. DOUGIE REILLY MD CM:CONSTR:REPORT OF CONSULTATION 1048 01/16/18 0746 interface
--- NOTE | ~2017-12-07 | DS ---
[place], [place] DISCHARGE SUMMARY NAME: ANDREAS ESCOTO [facility] #: [id number] UNIT #: [id number] ROOM: 526 DOCTOR: GYPSY GUDINO MD BIRTHDATE: [birth year] DOS: 12/17/2017 DIAGNOSES: 1. Adult failure to thrive. 2. Morbid obesity with BMI of 50+. 3. Large gastric ulcer at the anastomotic site. 4. Chronic stasis dermatitis. 5. Left heel ulcer. 6. Chronic pain syndrome. 7. Urinary tract infection with enterococcus, which is a contaminant and does not require any treatment as per Infectious Disease and contact isolation to be followed. 8. Major depression, recurrent. 9. Benign hypertension. 10. History of hepatitis C. 11. Cirrhosis of the liver with portal hypertension. 12. History of bariatric surgery for weight loss. 13. History of chronic low back pain. 14. History of primary insomnia. MEDICATIONS: On discharge he is on Carafate 2 grams 4 times a day, levothyroxine 25 mcg daily, Lyrica 300 b.i.d., methadone 10 mg 2 tablets 8:00 a.m. 1 tablet at 1600 hours and 2 tablets at night, omeprazole 40 daily, Zofran 4 mg b.i.d. p.r.n., oxybutynin 5 daily, temazepam 30 at bedtime, Xanax 0.5 twice a day p.r.n. HOSPITAL COURSE: The patient is 57 years old, very well known to us. The patient was admitted with complaints of abdominal pain and weight loss. Please refer to H and P for details. After admission, the patient was placed on IV fluids. Urine culture was sent, which showed enterococcus. Infectious Disease was consulted. The patient was on IV Zyvox. The Infectious Disease advised that the IV Zyvox be discontinued that the dose was a contaminant and continued contact isolation. Dr. Fragoso took the patient for an endoscopy, was noted to have a large gastric ulcer with a small clot on it, for which the patient was placed on octreotide IV infusion as well as Carafate and continued omeprazole. Blood cultures have come back negative. The patient is overall improved. PT/OT has been consulted and the patient has been slowly participating in PT. He has a chronic poorly healing wound of the left heel, which is granulating nicely. Maxorb to be applied to the wound along with honey dressings. The patient is overall stable and is accepted placement to [facility]. The plan is to go there today. Please arrange for a private bed for the patient. [place], [place] DISCHARGE SUMMARY NAME: ANDREAS ESCOTO UNIT #: [id number] ROOM: 526 DOCTOR: GYPSY GUDINO MD BIRTHDATE: [birth year] GYPSY GUDINO MD CM:DISCHARG [id number] 1000 GYPSY GUDINO MD 12/31/17 0914 interface
--- NOTE | ~2017-12-07 | PR ---
[place], [place] PROGRESS NOTE NAME: ANDREAS ESCOTO [facility] #: [id number] UNIT #: [id number] ROOM: 526 DOCTOR: BAUTISTA THOMPSON,ZANE Smith BIRTHDATE: [birth year] DOS: 12/14/2017 SUBJECTIVE: The patient is awake, alert, without new complaints. OBJECTIVE: VITAL SIGNS: Blood pressure 142/64, heart rate of 65 beats per minute, afebrile. GENERAL: Morbidly obese with generalized weakness. EXTREMITIES: Chronic stasis dermatitis in both legs. IMPRESSION: 1. Pancytopenia and anemia, treated with blood transfusion. 2. Gastrointestinal blood loss anemia. Replace with blood transfusion, hemoglobin of 8.6 today. 3. Bleeding large stomach and anastomotic ulcer and large duodenal ulcer on EGD by Dr. Fragoso. 4. Chronic pain syndrome. The patient is already on multiple opioids from home. 5. Advanced adult failure to thrive and poor prognosis. Palliative care consulted. 6. Thrombocytopenia, chronic. Apparently from portal hypertension from liver cirrhosis, which is chronic. 7. The patient waiting for his hemoglobin to stabilize and start eating before he can be discharged to long-term for rehabilitation. ZANE BAUM MD CM:PNTRANS 09 7 ZANE BAUM MD 12/15/17 0315 interface
[~2017-12-07 14:45] MED LIST changes: -ALPRAZOLAM0.5 M3 PO; -BENADRYL ALLERG25 M5 PO; -Carafate1 GM PO; -LOPRESSOR25 MG PO; -METHADONE HCL40 M1 PO; -ONDANSETRON4 M1 PO; -OXYBUTYNIN CHLOR5 MG PO; -OXYCODONE HCL10 M1 PO; -OXYCODONE HCL5 M1 PO; -RESTORIL15 MG PO; -Synthroid,Levo25 MCG PO; -THE MEDICINE SH20 M1 PO; -WALKER; -XANAX0.5 MG PO
[2017-12-07 14:46] VITALS: BP 143/62
[2017-12-07 15:26] LABS: BASO % 0.4 % (0.0-1.0); EOS # 0.1 10*3/uL (0.0-0.4); EOS % 2.5 % (1.0-4.0); HEMATOCRIT 22.3 % (42.0-52.0); HEMOGLOBIN 7.3 g/dl (14.0-18.0); LYMPH # 0.4 10*3/uL (1.3-4.4); LYMPH % 17.8 % (27.0-41.0); MEAN CELL VOLUME 98.2 fl (80.0-94.0); MEAN CORPUSCULAR HGB 32.2 pg (27.0-31.0); MEAN CORPUSCULAR HGB CONC 32.7 g/dl (33.0-37.0); MEAN PLATELET VOLUME 10.8 fl (9.6-12.3); MONO # 0.2 10*3/uL (0.1-1.0); MONO % 8.1 % (3.0-9.0); NEUT # 1.7 10*3/uL (2.3-7.9); NEUT % 71.2 % (47.0-73.0); PLATELET COUNT AUTOMATED 51 10*3/uL (130-400); RED BLOOD COUNT 2.27 10*6/uL (4.50-5.90); RED CELL DISTRI WIDTH 15.8 % (0-14.5); WHITE BLOOD COUNT 2.4 10*3/uL (4.8-10.8)
[2017-12-07 15:34] LABS: ACT PARTIAL THROMBO TIME 31.1 SECONDS (20.8-31.5); INTERNATIONAL NORM RATIO 1.3 (2.0-3.5)
[2017-12-07 15:50] LABS: ALBUMIN 2.1 gm/dl (3.1-4.5); ALKALINE PHOSPHATASE 100 U/L (45-117); BUN 19 mg/dl (7-24); CHLORIDE 102 mmol/L (98-107); CREATININE 1.44 mg/dL (0.70-1.30); LIPASE 68 U/L (73-393); SGOT/AST 15 IU/L (3-35); SGPT/ALT 8 U/L (12-78); SODIUM 137 mmol/L (136-145); TOTAL PROTEIN 6.4 gm/dL (6.4-8.2)
[2017-12-07 15:51] LABS: TROPONIN I < 0.015 ng/ml (<0.045)
[2017-12-07 16:26] VITALS: BP 157/79
[2017-12-07 16:29] LABS: BILIRUBIN 1+ (NEGATIVE); BLOOD 3+ (NEGATIVE); CLARITY CLOUDY (CLEAR); COLOR YELLOW (YELLOW); GLUCOSE NEGATIVE (NEGATIVE); KETONE NEGATIVE (NEGATIVE); LEUKO ESTERASE 3+ (NEGATIVE); NITRITE NEGATIVE (NEGATIVE); PH 7.5 (5.0-9.0)
[2017-12-07 16:34] LABS: BACTERIA 4+; EPITHELIAL CELLS 0-2; WBC 31-40 wbc/hpf (0-5)
[2017-12-07 17:37] VITALS: BP 140/68
[2017-12-07] MEDS ORDERED: OXYCODONE HCL10 M1 PO (18:26)
[2017-12-07] MEDS ORDERED: LYRICA300 MG PO (18:26)
[2017-12-07] MEDS ORDERED: Synthroid,Levo25 MCG PO (18:26)
[2017-12-07] MEDS ORDERED: DOLOPHINE HCL10 MG PO ×3 (18:28→18:38)
[2017-12-07] MEDS ORDERED: TEMAZEPAM30 MG PO (18:29)
[2017-12-07] MEDS ORDERED: RESTORIL15 MG PO (18:29)
[2017-12-07 18:30] VITALS: BP 150/60
[2017-12-07] MEDS ORDERED: ALPRAZOLAM0.5 M3 PO (18:30)
[2017-12-07] MEDS ORDERED: ONDANSETRON4 M1 PO (18:30)
[2017-12-07] MEDS ORDERED: OXYBUTYNIN CHLOR5 MG PO (18:30)
[2017-12-07] MEDS ORDERED: OMEPRAZOLE40 MG PO (18:34)
[2017-12-07] MEDS ORDERED: OXYCODONE HCL5 M1 PO (18:35)
[2017-12-08] VITALS (15 sets, daily range): BP systolic 104–136; BP diastolic 47–82
[2017-12-08 06:44] LABS: HEMATOCRIT 22.7 % (42.0-52.0); MEAN CELL VOLUME 100.4 fl (80.0-94.0); MEAN CORPUSCULAR HGB CONC 30.8 g/dl (33.0-37.0); MEAN PLATELET VOLUME 10.9 fl (9.6-12.3); RED BLOOD COUNT 2.26 10*6/uL (4.50-5.90); RED CELL DISTRI WIDTH 16.4 % (0-14.5)
[2017-12-08 06:58] LABS: BUN 16 mg/dl (7-24); CHLORIDE 107 mmol/L (98-107); CREATININE 1.24 mg/dL (0.70-1.30); SODIUM 142 mmol/L (136-145)
[2017-12-08 06:59] LABS: PLATELET COUNT AUTOMATED 45 10*3/uL (130-400)
[2017-12-08 07:13] LABS: BASOPHILS 1 % (0-1); PLATELET SUFFICIENCY LOW (NORMAL); POLYCHROMASIA SLIGHT; TOTAL CELLS COUNTED 100 #CELLS
[2017-12-08 07:34] LABS: WHITE BLOOD COUNT 1.8 10*3/uL (4.8-10.8)
[2017-12-09] VITALS: BP 126/55
[2017-12-09 06:04] LABS: HEMOGLOBIN 7.4 g/dl (14.0-18.0); MEAN CELL VOLUME 101.7 fl (80.0-94.0); MEAN CORPUSCULAR HGB 31.4 pg (27.0-31.0); MEAN CORPUSCULAR HGB CONC 30.8 g/dl (33.0-37.0); MEAN PLATELET VOLUME 11.1 fl (9.6-12.3); PLATELET COUNT AUTOMATED 53 10*3/uL (130-400); RED BLOOD COUNT 2.36 10*6/uL (4.50-5.90); RED CELL DISTRI WIDTH 16.9 % (0-14.5)
[2017-12-09 06:23] LABS: BUN 14 mg/dl (7-24); CHLORIDE 105 mmol/L (98-107); CREATININE 1.35 mg/dL (0.70-1.30); POTASSIUM 3.4 mmol/L (3.5-5.1); SODIUM 140 mmol/L (136-145)
[2017-12-09 06:40] LABS: PLATELET SUFFICIENCY LOW (NORMAL); POLYCHROMASIA SLIGHT; TOTAL CELLS COUNTED 100 #CELLS
[2017-12-09 06:42] LABS: WHITE BLOOD COUNT 1.9 10*3/uL (4.8-10.8)
[2017-12-09 08:00] VITALS: BP 113/44
[2017-12-09 12:00] VITALS: BP 110/56
[2017-12-09 16:00] VITALS: BP 132/50
[2017-12-09 20:00] VITALS: BP 148/77; BP 155/68
[2017-12-10] VITALS: BP 145/74
[2017-12-10 06:23] LABS: BUN 12 mg/dl (7-24); CHLORIDE 107 mmol/L (98-107); CREATININE 1.33 mg/dL (0.70-1.30); SODIUM 134 mmol/L (136-145)
[2017-12-10 06:30] LABS: POTASSIUM 4.6 mmol/L (3.5-5.1)
[2017-12-10 08:00] VITALS: BP 138/76
[2017-12-10 09:28] LABS: BASO % 0.4 % (0.0-1.0); EOS # 0.1 10*3/uL (0.0-0.4); EOS % 2.8 % (1.0-4.0); HEMATOCRIT 28.2 % (42.0-52.0); HEMOGLOBIN 8.9 g/dl (14.0-18.0); LYMPH # 0.8 10*3/uL (1.3-4.4); LYMPH % 16.3 % (27.0-41.0); MEAN CELL VOLUME 101.4 fl (80.0-94.0); MEAN CORPUSCULAR HGB CONC 31.6 g/dl (33.0-37.0); MEAN PLATELET VOLUME 10.4 fl (9.6-12.3); MONO # 0.3 10*3/uL (0.1-1.0); MONO % 6.7 % (3.0-9.0); NEUT # 3.4 10*3/uL (2.3-7.9); NEUT % 73.6 % (47.0-73.0); PLATELET COUNT AUTOMATED 68 10*3/uL (130-400); RED BLOOD COUNT 2.78 10*6/uL (4.50-5.90); RED CELL DISTRI WIDTH 16.4 % (0-14.5); WHITE BLOOD COUNT 4.6 10*3/uL (4.8-10.8)
[2017-12-10 12:00] VITALS: BP 118/76
[2017-12-10 16:00] VITALS: BP 122/76
[2017-12-10 20:00] VITALS: BP 136/51
[2017-12-11] VITALS (14 sets, daily range): BP systolic 113–154; BP diastolic 52–94
[2017-12-11 06:52] LABS: HEMATOCRIT 20.5 % (42.0-52.0); HEMOGLOBIN 6.4 g/dl (14.0-18.0)
[2017-12-11 12:41] LABS: INTERNATIONAL NORM RATIO 1.2 (2.0-3.5)
[2017-12-11] MEDS ORDERED: WALKER (17:44)
[2017-12-12] VITALS (14 sets, daily range): BP systolic 108–155; BP diastolic 57–80
[2017-12-12 08:15] LABS: BASO % 0.4 % (0.0-1.0); EOS # 0.1 10*3/uL (0.0-0.4); EOS % 2.9 % (1.0-4.0); HEMATOCRIT 24.4 % (42.0-52.0); HEMOGLOBIN 7.7 g/dl (14.0-18.0); LYMPH # 0.4 10*3/uL (1.3-4.4); LYMPH % 15.4 % (27.0-41.0); MEAN CELL VOLUME 99.6 fl (80.0-94.0); MEAN CORPUSCULAR HGB 31.4 pg (27.0-31.0); MEAN CORPUSCULAR HGB CONC 31.6 g/dl (33.0-37.0); MEAN PLATELET VOLUME 10.1 fl (9.6-12.3); MONO # 0.2 10*3/uL (0.1-1.0); MONO % 8.3 % (3.0-9.0); NEUT # 1.7 10*3/uL (2.3-7.9); NEUT % 72.6 % (47.0-73.0); PLATELET COUNT AUTOMATED 52 10*3/uL (130-400); RED BLOOD COUNT 2.45 10*6/uL (4.50-5.90); WHITE BLOOD COUNT 2.4 10*3/uL (4.8-10.8)
[2017-12-12 08:24] LABS: ACT PARTIAL THROMBO TIME 31.8 SECONDS (20.8-31.5); INTERNATIONAL NORM RATIO 1.2 (2.0-3.5)
[2017-12-13] VITALS (9 sets, daily range): BP systolic 118–150; BP diastolic 56–100
[2017-12-13 06:41] LABS: BASO % 0.5 % (0.0-1.0); EOS # 0.1 10*3/uL (0.0-0.4); EOS % 4.2 % (1.0-4.0); HEMATOCRIT 28.8 % (42.0-52.0); LYMPH # 0.5 10*3/uL (1.3-4.4); LYMPH % 22.2 % (27.0-41.0); MEAN CELL VOLUME 98.6 fl (80.0-94.0); MEAN CORPUSCULAR HGB 30.8 pg (27.0-31.0); MEAN CORPUSCULAR HGB CONC 31.3 g/dl (33.0-37.0); MEAN PLATELET VOLUME 10.7 fl (9.6-12.3); MONO # 0.1 10*3/uL (0.1-1.0); MONO % 6.5 % (3.0-9.0); NEUT # 1.4 10*3/uL (2.3-7.9); NEUT % 66.1 % (47.0-73.0); PLATELET COUNT AUTOMATED 55 10*3/uL (130-400); RED BLOOD COUNT 2.92 10*6/uL (4.50-5.90); RED CELL DISTRI WIDTH 17.3 % (0-14.5); WHITE BLOOD COUNT 2.2 10*3/uL (4.8-10.8)
[2017-12-13 07:03] LABS: ACT PARTIAL THROMBO TIME 33.1 SECONDS (20.8-31.5); INTERNATIONAL NORM RATIO 1.1 (2.0-3.5)
[2017-12-14] VITALS: BP 133/73
[2017-12-14 06:33] LABS: BASO % 0.4 % (0.0-1.0); EOS # 0.1 10*3/uL (0.0-0.4); EOS % 2.6 % (1.0-4.0); HEMATOCRIT 27.7 % (42.0-52.0); HEMOGLOBIN 8.6 g/dl (14.0-18.0); LYMPH # 0.4 10*3/uL (1.3-4.4); LYMPH % 16.3 % (27.0-41.0); MEAN CELL VOLUME 98.6 fl (80.0-94.0); MEAN CORPUSCULAR HGB 30.6 pg (27.0-31.0); MEAN PLATELET VOLUME 10.2 fl (9.6-12.3); MONO # 0.2 10*3/uL (0.1-1.0); NEUT % 73.3 % (47.0-73.0); PLATELET COUNT AUTOMATED 53 10*3/uL (130-400); RED BLOOD COUNT 2.81 10*6/uL (4.50-5.90); WHITE BLOOD COUNT 2.7 10*3/uL (4.8-10.8)
[2017-12-14 06:41] LABS: BUN 8 mg/dl (7-24); CHLORIDE 106 mmol/L (98-107); CREATININE 1.27 mg/dL (0.70-1.30); POTASSIUM 2.8 mmol/L (3.5-5.1); SODIUM 139 mmol/L (136-145)
[2017-12-14 06:49] LABS: ACT PARTIAL THROMBO TIME 32.7 SECONDS (20.8-31.5); INTERNATIONAL NORM RATIO 1.1 (2.0-3.5)
[2017-12-14 08:00] VITALS: BP 125/56
[2017-12-14 12:00] VITALS: BP 148/75
[2017-12-14 13:34] LABS: BUN 8 mg/dl (7-24); CHLORIDE 104 mmol/L (98-107); CREATININE 1.33 mg/dL (0.70-1.30); POTASSIUM 3.2 mmol/L (3.5-5.1); SODIUM 138 mmol/L (136-145)
[2017-12-14 16:00] VITALS: BP 142/64
[2017-12-14 20:00] VITALS: BP 160/68
[2017-12-15] VITALS: BP 151/72
[2017-12-15 06:43] LABS: BUN 7 mg/dl (7-24); CHLORIDE 107 mmol/L (98-107); CREATININE 1.23 mg/dL (0.70-1.30); POTASSIUM 3.1 mmol/L (3.5-5.1); SODIUM 141 mmol/L (136-145)
[2017-12-15 06:50] LABS: ACT PARTIAL THROMBO TIME 32.2 SECONDS (20.8-31.5); INTERNATIONAL NORM RATIO 1.1 (2.0-3.5)
[2017-12-15 08:30] VITALS: BP 118/60
[2017-12-15 12:00] VITALS: BP 140/55
[2017-12-15 16:00] VITALS: BP 144/63
[2017-12-15 20:00] VITALS: BP 121/87; BP 128/80
[2017-12-16] VITALS: BP 140/70
[2017-12-16 06:44] LABS: BUN 7 mg/dl (7-24); CHLORIDE 107 mmol/L (98-107); CREATININE 1.42 mg/dL (0.70-1.30); POTASSIUM 3.6 mmol/L (3.5-5.1); SODIUM 141 mmol/L (136-145)
[2017-12-16 12:00] VITALS: BP 158/64
[2017-12-16 16:00] VITALS: BP 118/82
[2017-12-16 20:00] VITALS: BP 144/88
[2017-12-17] VITALS: BP 153/71
[2017-12-17 08:00] VITALS: BP 142/68
[2017-12-17] MEDS ORDERED: Carafate1 GM PO (08:42)
[2017-12-17 12:00] VITALS: BP 162/64
[2017-12-18 12:07] LABS: HEPATITIS B SURFACE AG Negative (Negative)
[2017-12-19 08:59] LABS: HEPATITIS C VIRUS ANTIBODY >11.0 s/co (0.0-0.9)
== END 2017-12-17 16:20 | disposition other institution (70) | DRG 377 ==
LOC: ED 14:45 → EDHOLD 17:16 → 5E 17:16
PROVIDERS: Emergency Medicine; Internal Medicine; Internal Medicine Gastroenterology
PROC: 0DJ08ZZ Inspection of Upper Intestinal Tract, Via Natural or Artificial Opening Endoscopic (ICD-10-PCS; principal; 2017-12-08)
PROC: 30233R1 Transfusion of Nonautologous Platelets into Peripheral Vein, Percutaneous Approach (ICD-10-PCS; principal; 2017-12-08)
PROC: 30233N1 Transfusion of Nonautologous Red Blood Cells into Peripheral Vein, Percutaneous Approach (ICD-10-PCS; principal; 2017-12-08)
PROC: 3E0G8GC Introduction of Other Therapeutic Substance into Upper GI, Via Natural or Artificial Opening Endoscopic (ICD-10-PCS; 2017-12-13)
DX: K28.4 Chronic or unspecified gastrojejunal ulcer with hemorrhage (principal); L89.623 Pressure ulcer of left heel, stage 3; E43 Unspecified severe protein-calorie malnutrition; D62 Acute posthemorrhagic anemia; K76.6 Portal hypertension; D61.818 Other pancytopenia; N17.9 Acute kidney failure, unspecified; N39.0 Urinary tract infection, site not specified; F33.9 Major depressive disorder, recurrent, unspecified; Z68.41 Body mass index [BMI] 40.0-44.9, adult; K26.4 Chronic or unspecified duodenal ulcer with hemorrhage; Z96.651 Presence of right artificial knee joint; K74.60 Unspecified cirrhosis of liver; E86.0 Dehydration; K22.70 Barrett's esophagus without dysplasia; F51.04 Psychophysiologic insomnia; L89.322 Pressure ulcer of left buttock, stage 2; L89.312 Pressure ulcer of right buttock, stage 2; L89.892 Pressure ulcer of other site, stage 2; R31.9 Hematuria, unspecified; R26.2 Difficulty in walking, not elsewhere classified; J44.9 Chronic obstructive pulmonary disease, unspecified; E66.01 Morbid (severe) obesity due to excess calories; K21.9 Gastro-esophageal reflux disease without esophagitis; F41.1 Generalized anxiety disorder; B18.2 Chronic viral hepatitis C; I10 Essential (primary) hypertension; G89.4 Chronic pain syndrome; I87.2 Venous insufficiency (chronic) (peripheral); R62.7 Adult failure to thrive; E11.42 Type 2 diabetes mellitus with diabetic polyneuropathy; M19.90 Unspecified osteoarthritis, unspecified site; E87.6 Hypokalemia; Z90.49 Acquired absence of other specified parts of digestive tract; Z98.84 Bariatric surgery status; Z79.899 Other long term (current) drug therapy; Z87.440 Personal history of urinary (tract) infections; Z79.84 Long term (current) use of oral hypoglycemic drugs; Z79.4 Long term (current) use of insulin

== ENCOUNTER → 2017-12-19 | Outpatient (CLI) | payer MEDICARE ==
[~2017-12-19] MED LIST changes: +ALPRAZOLAM0.5 M3 PO; +Carafate1 GM PO; +OMEPRAZOLE40 MG PO; +ONDANSETRON4 M1 PO; +OXYBUTYNIN CHLOR5 MG PO; +OXYCODONE HCL10 M1 PO; +OXYCODONE HCL5 M1 PO; +RESTORIL15 MG PO; +Synthroid,Levo25 MCG PO; +WALKER
== END | disposition home or self-care (01) ==
LOC: WOUNDCARE 01:21
DX: E11.621 Type 2 diabetes mellitus with foot ulcer (principal); L89.624 Pressure ulcer of left heel, stage 4; L97.422 Non-pressure chronic ulcer of left heel and midfoot with fat layer exposed; L89.322 Pressure ulcer of left buttock, stage 2; L98.411 Non-pressure chronic ulcer of buttock limited to breakdown of skin; L89.892 Pressure ulcer of other site, stage 2; L97.521 Non-pressure chronic ulcer of other part of left foot limited to breakdown of skin; G89.29 Other chronic pain; K21.9 Gastro-esophageal reflux disease without esophagitis; I10 Essential (primary) hypertension; Z87.891 Personal history of nicotine dependence

== ENCOUNTER → 2018-01-02 | Outpatient (CLI) | payer MEDICARE | END | disposition home or self-care (01) | LOC: WOUNDCARE 04:27 | DX: E11.621 Type 2 diabetes mellitus with foot ulcer (principal); L89.622 Pressure ulcer of left heel, stage 2; L97.422 Non-pressure chronic ulcer of left heel and midfoot with fat layer exposed; L89.892 Pressure ulcer of other site, stage 2; L97.521 Non-pressure chronic ulcer of other part of left foot limited to breakdown of skin; L89.321 Pressure ulcer of left buttock, stage 1; L98.418 Non-pressure chronic ulcer of buttock with other specified severity; K21.9 Gastro-esophageal reflux disease without esophagitis; I10 Essential (primary) hypertension; G89.29 Other chronic pain; Z87.891 Personal history of nicotine dependence ==

== ENCOUNTER → 2018-02-13 | Outpatient (CLI) | payer MEDICARE | END | disposition home or self-care (01) | LOC: WOUNDCARE 04:44 | DX: E11.621 Type 2 diabetes mellitus with foot ulcer (principal); L89.892 Pressure ulcer of other site, stage 2; L97.522 Non-pressure chronic ulcer of other part of left foot with fat layer exposed; L84 Corns and callosities; L89.622 Pressure ulcer of left heel, stage 2; L97.422 Non-pressure chronic ulcer of left heel and midfoot with fat layer exposed; E11.622 Type 2 diabetes mellitus with other skin ulcer; L89.322 Pressure ulcer of left buttock, stage 2; L98.411 Non-pressure chronic ulcer of buttock limited to breakdown of skin; I10 Essential (primary) hypertension; K21.9 Gastro-esophageal reflux disease without esophagitis; G89.29 Other chronic pain; Z87.891 Personal history of nicotine dependence ==

== ENCOUNTER → 2018-02-19 | Outpatient (CLI) | payer MEDICARE | END | disposition home or self-care (01) | LOC: WOUNDCARE 04:26 | DX: E11.621 Type 2 diabetes mellitus with foot ulcer (principal); L89.892 Pressure ulcer of other site, stage 2; L97.422 Non-pressure chronic ulcer of left heel and midfoot with fat layer exposed; E11.622 Type 2 diabetes mellitus with other skin ulcer; L89.151 Pressure ulcer of sacral region, stage 1; L89.321 Pressure ulcer of left buttock, stage 1; L98.411 Non-pressure chronic ulcer of buttock limited to breakdown of skin; L97.822 Non-pressure chronic ulcer of other part of left lower leg with fat layer exposed; I10 Essential (primary) hypertension; K21.9 Gastro-esophageal reflux disease without esophagitis; G89.29 Other chronic pain; Z87.891 Personal history of nicotine dependence ==

== ENCOUNTER 2018-03-01 15:08 | Inpatient (IN) | payer MEDICARE ==
[~2018-03-01] VITALS: Ht 182.9 cm; Wt 130.8 kg
[2018-03-01] VITALS (14 sets, daily range): BP systolic 129–169; BP diastolic 57–87
--- NOTE | ~2018-03-01 | EKG ---
[place], [place] ELECTROCARDIOGRAM REPORT NAME: ANDREAS ESCOTO UNIT #: [id number] ROOM: [facility] DOCTOR: DAPHNE DRAFT REPORT BIRTHDATE: [birth year] [facility] Test Date: 2018-03-01 Test Time: 15:48:17 Pat Name: ANDREAS ESCOTO Department: ICU Room: [facility] Gender: M Waiter/Waitress Take Out: Anu Goldstein : 1960 Requested By: VALENTE MORALES Order Number: [id number] Reading MD: Fish Carlisle MD Measurements Intervals [place] Rate: 87 P: 111 NH: 231 QRS: 38 QRSD: 130 T: 133 QT: 379 QTc: 456 Interpretive Statements Sinus rhythm Prolonged [place] interval Nonspecific intraventricular conduction delay Repol abnrm suggests ischemia, anterolateral Compared to ECG 12/07/2017 15:34:17 First degree AV block now present Early repolarization now present Possible ischemia now present T-wave abnormality no longer present Electronically Signed On 03-04-2018 12:31:09 PST by Fish Carlisle MD CM:EKGRPT:ELECTROCARDIOGRAM REPORT [id number] VALENTE MORALES MD EPIPHANY DRAFT REPORT VALENTE MORALES MD
--- NOTE | ~2018-03-01 | WRIGHTHP ---
[place], [place] PATIENT HISTORY AND PHYSICAL EXAM NAME: ANDREAS ESCOTO [facility] #: [id number] UNIT #: [id number] ROOM: [facility] DOCTOR: ZANE BAUM MD BIRTHDATE: [birth year] DOS: 03/01/2018 HISTORY OF PRESENT ILLNESS: The patient is a 57-year-old gentleman with a past medical history of: 1. Morbid obesity. 2. Bariatric surgery with anastomotic ulcer at the surgical site. 3. Benign essential hypertension. 4. Major depression, recurrent. 5. Generalized anxiety disorder. 6. Gastroesophageal reflux disease and esophagitis. 7. Chronic hepatitis C. 8. Liver cirrhosis and ascites. 9. History of appendectomy, cholecystectomy, and tonsillectomy. 10. Right knee reconstruction. 11. Morbid obesity. 12. History of back surgery. 13. Chronic primary insomnia. 14. Left heel ulcer. 15. Chronic pain syndrome. The patient presented to the Emergency Department after failing increased weakness, abdominal pains, and he had tarry black stools. In the ER, the patient was evaluated and he had dropped his hemoglobin to 7.6 from 10.5 in the past and apparently was still bleeding. Dr. Fragoso, the printed products assembler, came in and took the patient for an EGD where he found a large blood clot at the anastomotic site where he has large ulcer. Dr. Fragoso stopped the bleeding with epinephrine injection and started the patient on the Sandostatin infusion and IV Protonix infusion. Blood transfusion was also ordered and he has had 1 unit of packed cells infused. The patient is very pale looking somewhat uncomfortable, otherwise awake. The patient's is present with him. The patient and his want the patient to maintain a FULL CODE status. No recent chest pain, no dizziness or fainting episodes. No other GI or urinary symptoms. REVIEW OF SYSTEMS: GASTROINTESTINAL: The patient with black tarry stools recently. CARDIOVASCULAR SYSTEM: No chest pains or palpitations. LUNGS: No increasing shortness of breath or wheezing. FAMILY HISTORY: Noncontributory. HOME MEDICATIONS: The patient was taking omeprazole, levothyroxine, Carafate, and Xanax at home. ALLERGIES: No known drug allergies. PHYSICAL EXAMINATION: VITAL SIGNS: Blood pressure 160/77, heart rate 84 beats per minute, breathing 14 times per minute, and afebrile. GENERAL AND EXTREMITIES: Awake, alert, pale and very weak looking, morbidly obese with chronic skin changes and stasis dermatitis changes in both legs with [place], [place] PATIENT HISTORY AND PHYSICAL EXAM [facility]: [facility] [id number] UNIT #: [id number] ROOM: [facility] DOCTOR: ZANE BAUM MD BIRTHDATE: [birth year] significant swelling in the legs. The patient also has left heel sacral and bilateral calf ulcers and left hip ulcer. Otherwise, generalized weakness. HEENT AND NECK: Extraocular movements are intact. Sclerae are anicteric. Oral mucosa is moist and clean. No obvious facial weakness. Neck is supple without any lymphadenopathy. No thyromegaly. No JVD. No carotid arterial bruits. LUNGS: Clear to auscultation. No wheezing. No rhonchi. CARDIOVASCULAR SYSTEM: Heart rate is regular in rate and rhythm. S1 and S2 normally audible. No significant murmur or any other abnormal cardiac sounds. ABDOMEN: Soft, nontender. No obvious organomegaly. Bowel sounds are present. No obvious herniation. CENTRAL NERVOUS SYSTEM: Alert and oriented x 3. Cranial nerves II-XII are intact. Speech is normal. The patient is able to move all extremities. Normal muscle strength. Deep tendon reflexes are equal on both sides. Plantars were downgoing. LABORATORY DATA: Hemoglobin dropped to 7.6. The patient with chest x-ray without acute abnormality. INR at 1.3. Lactic acid level of 1.4, platelets low at 70,000. IMPRESSION AND PLAN: The patient with acute upper GI bleed at the site of anastomosis with a blood clot, bleeding stopped by Dr. Fragoso with epinephrine injection and now the patient started on Sandostatin and IV Protonix infusions and the patient also getting blood and platelet infusions. I called [facility] in [place] to try and transfer the patient out for critical care. [facility] is accepting the patient and is trying to make arrangements. The patient is stable, but critical condition at this time. The patient with advanced end-stage liver cirrhosis and ascites and portal hypertension with INR elevated to 1.2. Ammonia level was normal. Acute blood loss anemia with precipitous drop in hemoglobin. The patient is undergoing blood transfusion and hemoglobin will be repeated and monitored. Thrombocytopenia, apparently related to portal hypertension and hypersplenism. The patient is getting platelet transfusion because of his acute bleed. Bilateral leg stasis dermatitis and leg edema. Decubitus ulcers as mentioned above, left heel, left hip, both casts to be treated appropriately. Severe-protein calorie malnutrition with albumin level of 1.7. The patient needs to work with dietary. Chronic hepatitis C infection. Although the patient and his wants him to maintain full code status, but his prognosis remains poor because of his overall poor health and adult failure to thrive, generalized weakness and malnutrition along with liver failure. Situation explained to the patient and his and also discussed in detail with nursing staff and with the hospitalist at [facility] one call referral system. [place], [place] PATIENT HISTORY AND PHYSICAL EXAM NAME: ANDREAS ESCOTO UNIT #: [id number] ROOM: [facility] DOCTOR: ZANE BAUM MD BIRTHDATE: [birth year] ZANE BAUM MD CM:HISPHYS:PATIENT HISTORY AND PHYSICAL EXAMINATION 03 35 ZANE BAUM MD 03/01/182034 interface
--- NOTE | ~2018-03-01 | CON ---
[place], [place] REPORT OF CONSULTATION NAME: ANDREAS ESCOTO UNIT #: [id number] ROOM: [facility] DOCTOR: DOUGIE REILLY MD BIRTHDATE: [birth year] DOS: 03/01/2018 HISTORY OF PRESENT ILLNESS: A 57-year-old patient who has presented with chief complaint of melanotic stool, drop in hemoglobin to 7, has been admitted through the Emergency Room for the active GI bleed. The patient with a history of gastric bypass and in November time he was in the hospital, he has been taking Carafate as well as omeprazole 20 mg daily. I discussed the case with the and verified that he was not apparently under adequate medication sent home to begin with, after he was recovered from his acute bleeding. PAST MEDICAL HISTORY: Morbid obesity; diabetes mellitus; hypertension; advanced cellulitis of the lower extremities, chronically; peripheral neuropathy; history of portal hypertension; anxiety; depression; and degenerative joint disease. PAST SURGICAL HISTORY: Gastric bypass 5 years ago, appendectomy, cholecystectomy, cardiac catheterization, tonsillectomy, and right knee prosthesis. SOCIAL HISTORY: Smoker. Past recreational drug user. FAMILY HISTORY: Noncontributory, supportive . ALLERGIES: MORPHINE. MEDICATIONS: List reviewed. REVIEW OF SYSTEMS: HEENT: Denies double vision, blurred vision. RESPIRATORY: Denies shortness of breath. CARDIOVASCULAR: Denies chest pain. DIGESTIVE SYSTEM: Feels sick in the stomach, melanotic stool. PHYSICAL EXAMINATION: GENERAL: Extremely pale patient. Borderline hypertension. HEENT: Head normocephalic, nontraumatic. Otherwise, mouth and buccal mucosa benign. NECK: Supple, no thyromegaly, no cervical lymphadenopathy. CHEST: Symmetric anatomy, equal expansion. No wheeze, no rhonchi. Decreased air entry. HEART: Normal sinus rhythm, no gallop, no murmur. ABDOMEN: Morbid obese, soft. No hepato-organomegaly. Bowel sounds present. No pulsatile mass. EXTREMITIES: Stasis dermatitis of advanced degree and deformity of the skin entirely and cellulitis. NEUROLOGIC: Appears to be alert and oriented. LABORATORY DATA: His labs reviewed and his records reviewed. Lactic acid 1.4. CBC: White blood cell 5, H and H 7 and 23. Serum ammonia level 29. Comprehensive metabolic panel, electrolyte balance, except potassium of 3.2. Liver function tests appeared to be normal. Serum magnesium is 1.2. Chest [place], [place] REPORT OF CONSULTATION NAME: ANDREAS ESCOTO UNIT #: [id number] ROOM: [facility] DOCTOR: DOUGIE REILLY MD BIRTHDATE: [birth year] x-ray normal. IMPRESSION AND PLAN: The patient is known with the anastomotic site ulcer in November and I would be considering reassessment of this patient's anastomotic site for expectation of a large anastomotic ulcer, bleeding, and melanotic stool. Transfusion is going to be in progress. The patient is going to be kept in ICU, endoscopy tonight. DOUGIE REILLY MD CM:CONSTR:REPORT OF CONSULTATION 1827 03/02/18 0517 interface
--- NOTE | ~2018-03-01 | O ---
[place], [place] OPERATIVE NOTE NAME: ANDREAS ESCOTO UNIT #: [id number] ROOM: [facility] DOCTOR: DOUGIE REILLY MD BIRTHDATE: [birth year] DOS: 03/01/2018 GASTROENDOSCOPIC REPORT HISTORY OF PRESENT ILLNESS: A 57-year-old patient who has presented with chief complaint of melanotic stool, status post previous gastric bypass 5 years ago, history of known giant anastomotic site ulcer. PROCEDURE: Today's procedure part of investigation is panendoscopy plus epinephrine injection for hemostasis therapy. PREMEDICATION: Propofol. SCOPE: Olympus forward-viewing gastroscope Q10 video. REPORT: After putting the patient in left lateral position and application of lubricant to the scope, the scope was introduced. Thereafter, under direct visualization, advanced through the length of esophagus without difficulty into gastric pouch. Anastomotic site was defined. There is a giant clot sitting on very large ulcer non-clippable tear. Therefore, epinephrine injection 1-100,000 2 mL in upper and lower aspect of the ulcer was injected. Mucosa pale. Photographic series obtained. Scope was withdrawn back to the distal esophagus, hiatal hernia appreciated. Distal esophageal ulcers secondary to reflux demonstrated. Air was suctioned out. The patient was extubated, tolerated the procedure well. IMPRESSION: Giant anastomotic ulcer, status post epinephrine injection for hemostasis therapy, distal esophageal ulcer, and hiatal hernia. PLAN AND DISCUSSION: This patient must remain in aggressive doses of PPI and sucralfate at that time that he has been discharged for the next 6 months. He cannot afford with a low maintenance PPI until it is proven that he does no longer have the ulcers at the anastomotic site and then only with maintenance dose. At the present time, he is going to be sent to ICU, Sandostatin drip is going to be started, double dose Protonix, double dose Carafate is going to be started. He is going to be kept n.p.o. except ice cream, ice water, and ice jello and no solid food and follow up on H and H after 2 units of transfusion of packed cells and clinical reevaluate. [place], [place] OPERATIVE NOTE NAME: ANDREAS ESCOTO UNIT #: [id number] ROOM: [facility] DOCTOR: TOMMIE THOMPSON,DOUGIE BIRTHDATE: [birth year] DOUGIE REILLY MD CM:OPRECORD:OPERATIVE NOTE 1827 0522 DOUGIE REILLY MD 03/02/18 0520 interface
[~2018-03-01 15:08] MED LIST changes: -OMEPRAZOLE40 MG PO; +THE MEDICINE SH20 M1 PO
[2018-03-01 16:04] LABS: BASO % 0.4 % (0.0-1.0); EOS % 0.8 % (1.0-4.0); HEMOGLOBIN 7.6 g/dl (14.0-18.0); LYMPH # 0.7 10*3/uL (1.3-4.4); LYMPH % 14.5 % (27.0-41.0); MEAN CELL VOLUME 95.4 fl (80.0-94.0); MEAN CORPUSCULAR HGB 31.5 pg (27.0-31.0); MEAN PLATELET VOLUME 9.5 fl (9.6-12.3); MONO # 0.4 10*3/uL (0.1-1.0); MONO % 7.4 % (3.0-9.0); NEUT # 3.9 10*3/uL (2.3-7.9); NEUT % 76.5 % (47.0-73.0); PLATELET COUNT AUTOMATED 70 10*3/uL (130-400); RED BLOOD COUNT 2.41 10*6/uL (4.50-5.90); RED CELL DISTRI WIDTH 15.8 % (0-14.5); WHITE BLOOD COUNT 5.1 10*3/uL (4.8-10.8)
[2018-03-01 16:16] LABS: ACT PARTIAL THROMBO TIME 32.1 SECONDS (20.8-31.5); INTERNATIONAL NORM RATIO 1.3 (2.0-3.5)
[2018-03-01 16:20] LABS: ALBUMIN 1.7 gm/dl (3.1-4.5); ALKALINE PHOSPHATASE 76 U/L (45-117); BUN 14 mg/dl (7-24); CHLORIDE 100 mmol/L (98-107); CREATININE 1.13 mg/dL (0.70-1.30); POTASSIUM 3.2 mmol/L (3.5-5.1); SGOT/AST 21 IU/L (3-35); SGPT/ALT 13 U/L (12-78); SODIUM 136 mmol/L (136-145); TOTAL PROTEIN 6.5 gm/dL (6.4-8.2)
[2018-03-01 16:23] LABS: TROPONIN I 0.032 ng/ml (<0.045)
[2018-03-01] MEDS ORDERED: LOPRESSOR25 MG PO (19:15)
[2018-03-01] MEDS ORDERED: NORVASC5 MG PO (19:16)
[2018-03-01] MEDS ORDERED: XANAX0.5 MG PO (19:21)
[2018-03-01] MEDS ORDERED: METHADONE HCL40 M1 PO (19:24)
[2018-03-01] MEDS ORDERED: BENADRYL ALLERG25 M5 PO (19:28)
== END 2018-03-01 22:00 | disposition short-term general hospital (02) | DRG 377 ==
LOC: ED 15:08 → ICCU 17:37
PROVIDERS: Emergency Medicine
PROC: 3E0G8GC Introduction of Other Therapeutic Substance into Upper GI, Via Natural or Artificial Opening Endoscopic (ICD-10-PCS; principal; 2018-03-01)
PROC: 30233N1 Transfusion of Nonautologous Red Blood Cells into Peripheral Vein, Percutaneous Approach (ICD-10-PCS; 2018-03-01)
DX: K28.4 Chronic or unspecified gastrojejunal ulcer with hemorrhage (principal); E43 Unspecified severe protein-calorie malnutrition; K22.10 Ulcer of esophagus without bleeding; D62 Acute posthemorrhagic anemia; K76.6 Portal hypertension; Z68.41 Body mass index [BMI] 40.0-44.9, adult; K21.0 Gastro-esophageal reflux disease with esophagitis; D69.6 Thrombocytopenia, unspecified; D73.1 Hypersplenism; I87.2 Venous insufficiency (chronic) (peripheral); R62.7 Adult failure to thrive; K72.90 Hepatic failure, unspecified without coma; E87.6 Hypokalemia; E66.01 Morbid (severe) obesity due to excess calories; F41.1 Generalized anxiety disorder; B18.2 Chronic viral hepatitis C; K74.60 Unspecified cirrhosis of liver; F51.04 Psychophysiologic insomnia; G89.4 Chronic pain syndrome; E11.42 Type 2 diabetes mellitus with diabetic polyneuropathy; M19.90 Unspecified osteoarthritis, unspecified site; K44.9 Diaphragmatic hernia without obstruction or gangrene; K21.9 Gastro-esophageal reflux disease without esophagitis; F51.01 Primary insomnia; Z96.651 Presence of right artificial knee joint; I10 Essential (primary) hypertension; Z87.11 Personal history of peptic ulcer disease; Z98.84 Bariatric surgery status; Z90.49 Acquired absence of other specified parts of digestive tract; Z88.6 Allergy status to analgesic agent

== ENCOUNTER 2018-04-11 22:17 | Emergency (ER) | payer MEDICARE ==
[~2018-04-11] VITALS: Ht 170.1 cm; Wt 136.1 kg
--- NOTE | ~2018-04-11 | EKG ---
[place], [place] ELECTROCARDIOGRAM REPORT NAME: ANDREAS ESCOTO UNIT #: [id number] ROOM: DOCTOR: EPIPHANY DRAFT REPORT BIRTHDATE: [birth year] [facility] Test Date: 2018-04-11 Test Time: 22:53:13 Pat Name: ANDREAS ESCOTO Department: ED Room: 3 Gender: M Mechanical Development Engineer: Xenia Hearn : 1960 Requested By: GAYE MENDOZA Order Number: [id number] Reading MD: Fish Carlisle MD Measurements Intervals [place] Rate: 98 P: 0 [place]: 28 QRS: 32 QRSD: 123 T: 32 QT: 334 QTc: 427 Interpretive Statements Sinus rhythm Ventricular premature complex Short [place] interval Right atrial enlargement Nonspecific intraventricular conduction delay Borderline T abnormalities, anterior leads Artifact in lead(s) I,II,aVR,aVL,aVF,V1 Compared to ECG 03/01/2018 15:48:17 Ventricular premature complex(es) now present Electronically Signed On 04-14-2018 4:41:24 PST by Fish Carlisle MD CM:EKGRPT:ELECTROCARDIOGRAM REPORT [id number] GAYE MENDOZA EPIPHANY DRAFT REPORT GAYE MENDOZA
[~2018-04-11 22:17] MED LIST changes: +BENADRYL ALLERG25 M5 PO; +LOPRESSOR25 MG PO; +METHADONE HCL40 M1 PO; +XANAX0.5 MG PO
[2018-04-11 23:17] LABS: HEMATOCRIT 30.4 % (42.0-52.0); HEMOGLOBIN 9.5 g/dl (14.0-18.0); MEAN CELL VOLUME 98.1 fl (80.0-94.0); MEAN CORPUSCULAR HGB 30.6 pg (27.0-31.0); MEAN CORPUSCULAR HGB CONC 31.3 g/dl (33.0-37.0); MEAN PLATELET VOLUME 9.7 fl (9.6-12.3); PLATELET COUNT AUTOMATED 106 10*3/uL (130-400); RED CELL DISTRI WIDTH 19.3 % (0-14.5); WHITE BLOOD COUNT 14.3 10*3/uL (4.8-10.8)
[2018-04-11 23:26] LABS: ACT PARTIAL THROMBO TIME 51.1 SECONDS (20.8-31.5); INTERNATIONAL NORM RATIO 2.3 (2.0-3.5)
[2018-04-11 23:34] LABS: ALBUMIN 1.4 gm/dl (3.1-4.5); CREATININE 2.75 mg/dL (0.70-1.30); POTASSIUM 3.5 mmol/L (3.5-5.1); TOTAL PROTEIN 5.5 gm/dL (6.4-8.2)
[2018-04-12] LABS: PLATELET SUFFICIENCY LOW (NORMAL); TOTAL CELLS COUNTED 100 #CELLS
[2018-04-12 00:01] LABS: BURR CELLS FEW
== END 2018-04-12 02:32 | disposition short-term general hospital (02) ==
LOC: ED 22:17
PROVIDERS: Nurse Practitioner Family
DX: K63.1 Perforation of intestine (nontraumatic) (principal); E66.01 Morbid (severe) obesity due to excess calories; K74.60 Unspecified cirrhosis of liver; Z79.899 Other long term (current) drug therapy; Z90.49 Acquired absence of other specified parts of digestive tract